=== PATIENT | female | born 1980 | race American Indian/Alaskan Native ===

== ENCOUNTER 2017-01-11 16:06 | Emergency (ER) | payer SELFPAY ==
[2017-01-11 21:07] LABS: Bilirubin,Urine NEG (Negative); Blood,Urine NEG (Negative); Ketones,Urine TR mg/dL (Negative); Leukocyte Esterase,Urine NEG (Negative); Mucus,Urine 1+ /HPF; Nitrite,Urine NEG (Negative); Urobilinogen,Urine < 2.0 mg/dL (<2.0)
[2017-01-11] MEDS ORDERED: TORADOL IM ONE (21:29)
[2017-01-11] MEDS ORDERED: NORCO 5/325 PO ONE (21:29)
[2017-01-11] MEDS ORDERED: ZOFRAN ODT PO ONE (21:29)
--- NOTE | 2017-01-11 22:06 | Emergency Department Report ---
ED Back Pain/Injury HPI - General Chief Complaint: Back Pain/Injury Stated Complaint: SEVERE BACK PAIN Time Seen by Provider: 01/11/17 20:51 Source: patient Limitations: No Limitations - History of Present Illness Initial Comments: 36-year-old female past medical history morbid obesity, chronic back pain presents with complaint of acute on chronic back pain. Patient states the back pain radiates from lower back down left. Patient denies any direct trauma, patient denies any rash, patient denies any dysuria or increased urinary frequency. States she has had intermittent lower back pain radiating to left buttock approximately one year. Patient is calm sitting on bed states that when she walks around she feels intermittent sharp lower back pain. Pt denies any saddle paresthesias or any bladder or bowel incontinence. Patient is ambulatory during my exam MD Complaint: back pain Onset/Timin -: year(s) Place: home Radiation: buttocks (left buttock) Severity: moderate Severity scale (0 -10): 7 Quality: sharp, aching Consistency: intermittent Improves With: none Worsens With: none Associated Symptoms: denies other symptoms - Related Data Home Medications Medication Instructions Recorded Confirmed Last Taken Ferrous Sulfate [Feosol] 325 mg PO BID 01/24/16 01/11/17 02/01/16 Previous Rx's Medication Instructions Recorded Last Taken Type oxyCODONE /ACETAMINOPHEN [Percocet 1 tab PO Q6HR PRN #30 tablet 02/08/16 Unknown Rx 5/325] Ibuprofen [Motrin 600 MG tab] 600 mg PO Q8H PRN #30 tablet 02/09/16 Unknown Rx Cyclobenzaprine [Flexeril] 10 mg PO TID PRN #12 tablet 01/11/17 Unknown Rx Naproxen [Naprosyn TAB] 500 mg PO BID PRN #25 tablet 01/11/17 Unknown Rx Allergies Allergy/AdvReac Type Severity Reaction Status Date / Time No Known Allergies Allergy Verified 02/07/16 11:28 ED Review of Systems ROS: Stated complaint: SEVERE BACK PAIN Other details as noted in HPI Constitutional: denies: chills, fever Eyes: denies: eye pain, eye discharge, vision change ENT: denies: ear pain, throat pain Respiratory: denies: cough, shortness of breath, wheezing Cardiovascular: denies: chest pain, palpitations Endocrine: no symptoms reported Gastrointestinal: denies: abdominal pain, nausea, diarrhea Genitourinary: denies: urgency, dysuria, discharge Musculoskeletal: denies: back pain, joint swelling, arthralgia Skin: denies: rash, lesions Neurological: denies: headache, weakness, paresthesias Psychiatric: denies: anxiety, depression Hematological/Lymphatic: denies: easy bleeding, easy bruising ED Past Medical Hx - Past Medical History Hx Hypertension: No Hx Diabetes: No Hx Headaches / Migraines: Yes (migraines) Hx Asthma: No Hx COPD: No Hx HIV: No Additional medical history: fibroids - Surgical History Additional Surgical History: myomectomy - Social History Smoking Status: Never Smoker Substance Use Type: None - Medications Home Medications: Home Medications Medication Instructions Recorded Confirmed Last Taken Type Ferrous Sulfate [Feosol] 325 mg PO BID 01/24/16 01/11/17 02/01/16 History oxyCODONE /ACETAMINOPHEN [Percocet 1 tab PO Q6HR PRN #30 tablet 02/08/16 Unknown Rx 5/325] Ibuprofen [Motrin 600 MG tab] 600 mg PO Q8H PRN #30 tablet 02/09/16 01/11/17 Unknown Rx Cyclobenzaprine [Flexeril] 10 mg PO TID PRN #12 tablet 01/11/17 Unknown Rx Naproxen [Naprosyn TAB] 500 mg PO BID PRN #25 tablet 01/11/17 Unknown Rx ED Physical Exam - General Limitations: No Limitations General appearance: alert, in no apparent distress - Head Head exam: Present: atraumatic, normocephalic - Eye Eye exam: Present: normal appearance, PERRL, EOMI - ENT ENT exam: Present: mucous membranes moist - Neck Neck exam: Present: normal inspection - Respiratory Respiratory exam: Present: normal lung sounds bilaterally. Absent: respiratory distress - Cardiovascular Cardiovascular Exam: Present: regular rate, normal rhythm. Absent: systolic murmur, diastolic murmur, rubs, gallop - GI/Abdominal GI/Abdominal exam: Present: soft, normal bowel sounds - Rectal Rectal exam: Present: normal rectal tone - Extremities Exam Extremities exam: Present: normal inspection - Back Exam Back exam: Present: normal inspection - Neurological Exam Neurological exam: Present: alert, oriented X3, CN II-XII intact, normal gait - Psychiatric Psychiatric exam: Present: normal affect, normal mood - Skin Skin exam: Present: warm, dry, intact, normal color. Absent: rash ED Course Vital Signs 01/11/17 01/11/17 18:54 22:17 Temperature 97.8 F Pulse Rate 87 95 H Respiratory 18 18 Rate Blood Pressure 134/76 Blood Pressure 134/81 [Left] O2 Sat by Pulse 100 100 Oximetry ED Medical Decision Making - Medical Decision Making A/P: Chronic lower back pain, sciatica left side 1- patient has no signs of cord compression clinically no saddle paresthesias good rectal tone and reports no loss of bladder or bowel control and is ambulatory, deep tendon reflexes intact bilaterally in lower extremities knee jerk reflex intact and strength is 5 out of 5 both lower extremities. No clinical indication for emergent neuroimaging at this time 2- naproxen and Flexeril when necessary 3- I provided patient with information for follow-up with spine surgery orthopedics and primary care 4- as patient is morbidly obese I advised her to try weight loss to put less daily axial pressure on her spine. I gave patient literature on sciatica and lumbar radiculopathy for her to understand the symptoms and etiology Critical care attestation.: If time is entered above; I have spent that time in minutes in the direct care of this critically ill patient, excluding procedure time. ED Disposition Clinical Impression: Sciatic leg pain Lower back pain Qualifiers: Chronicity: acute Back pain laterality: left Sciatica presence: with sciatica Sciatica laterality: sciatica of left side Qualified Code(s): M54.42 - Lumbago with sciatica, left side Disposition: TO HOME OR SELFCARE Is pt being admited?: No Does the pt Need Aspirin: No Condition: Stable Instructions: Sciatica (ED), Lumbar Radiculopathy (ED) Prescriptions: Cyclobenzaprine [Flexeril] 10 mg PO TID PRN #12 tablet PRN Reason: Muscle Spasm Naproxen [Naprosyn TAB] 500 mg PO BID PRN #25 tablet PRN Reason: Pain Referrals: JERICA PARRA MD [Staff Physician] - 3-5 Days AZ COLE MD [Staff Physician] - 3-5 Days [facility] [Provider Group] - 3-5 Days [facility] [Outside] - 3-5 Days Forms: Work/School Release Form(ED) Time of Disposition: 22:04
[2017-01-11 22:18] VITALS: BP 134/81
== END 2017-01-11 22:18 | disposition home or self-care (01) ==
LOC: ED 16:06
DX: M54.42 Lumbago with sciatica, left side (principal); M79.605 Pain in left leg; G43.909 Migraine, unspecified, not intractable, without status migrainosus
CPT/HCPCS: 81001; 81025; 96372; 99283; J1885; Q0162

== ENCOUNTER 2017-01-17 10:10 | Inpatient (IN) | payer SELFPAY ==
[2017-01-17 11:13] LABS: Basophils % (Auto) 0.6 % (0.0-1.8); Eosinophils % (Auto) 2.4 % (0.0-4.3); Mean Corpuscular HGB Conc 27 % (30-34); Platelet Count 331 K/mm3 (140-440); Red Blood Count 3.53 M/mm3 (3.65-5.03)
[2017-01-17 11:15] LABS: Anion Gap 16 mmol/L; Blood Urea Nitrogen 9 mg/dL (7-17); Calcium 8.7 mg/dL (8.4-10.2); Carbon Dioxide 26 mmol/L (22-30); Chloride 102.7 mmol/L (98-107); Glucose 89 mg/dL (65-100); Potassium 3.2 mmol/L (3.6-5.0); Sodium 141 mmol/L (137-145)
[2017-01-17 11:19] LABS: Hematocrit 20.9 % (30.3-42.9); Hemoglobin 5.7 gm/dl (10.1-14.3); Mean Corpuscular Hemoglobin 16 pg (28-32); Mean Corpuscular Volume 59 fl (79-97); Red Cell Distribution Width 20.1 % (13.2-15.2)
[2017-01-17 11:21] LABS: INR 0.97 (0.87-1.13)
[2017-01-17] MEDS ORDERED: NACL 0.9% 500 ML 500 ML IV ONE (14:45)
[2017-01-17] MEDS ORDERED: K-DUR PO ONE (14:49)
--- NOTE | 2017-01-17 14:51 | Emergency Department Report ---
ED Female HPI - General Chief complaint: Recheck/Abnormal Lab/Rx Stated complaint: LOW BLOOD COUNT Time Seen by Provider: 01/17/17 14:49 Source: patient Mode of arrival: Ambulatory Limitations: No Limitations - History of Present Illness Initial comments: 36 year old female with past medical history of obesity, uterine fibroids, anemia, and migraines presents to the hospital with complaints of anemia and menorrhagia. Patient was sent by Dr. Elias RV REPAIRER doctor [facility] because her hemoglobin was 6. Patient complains of generalized weakness and fatigue with dyspnea on exertion. Patient having intermittent crampy suprapubic abdominal pain that is mild. Patient restarted her menstrual cycle on the . She is using multiple overnight pads (2 at a time) and has heavy vaginal bleeding. Patient had a myomectomy performed by Dr. Sabas Zamora January 2016. Patient states this seemed to help for 2 months but then patient continued to have heavy menstrual cycles. She has never required a blood transfusion in the past. Patient states her last ultrasound was in the outpatient clinic in October and she was told they she has fibroids plus a mass that needs to be biopsied. Patient is not currently taking iron tablets - Related Data Home Medications Medication Instructions Recorded Confirmed Last Taken Ferrous Sulfate [Feosol] 325 mg PO BID 01/24/16 01/11/17 02/01/16 Previous Rx's Medication Instructions Recorded Last Taken Type oxyCODONE /ACETAMINOPHEN [Percocet 1 tab PO Q6HR PRN #30 tablet 02/08/16 Unknown Rx 5/325] Ibuprofen [Motrin 600 MG tab] 600 mg PO Q8H PRN #30 tablet 02/09/16 Unknown Rx Cyclobenzaprine [Flexeril] 10 mg PO TID PRN #12 tablet 01/11/17 Unknown Rx Naproxen [Naprosyn TAB] 500 mg PO BID PRN #25 tablet 01/11/17 Unknown Rx Allergies Allergy/AdvReac Type Severity Reaction Status Date / Time No Known Allergies Allergy Verified 01/17/17 10:29 ED Review of Systems ROS: Stated complaint: LOW BLOOD COUNT Other details as noted in HPI Comment: All other systems reviewed and negative Other: Constitutional: No fevers chills Eyes: No eye pain visual changes ENT: No ear pain or throat pain Neck: Denies pain Respiratory: Denies cough wheezing Cardiovascular: Denies chest pain, palpitations, syncope GI: Denies abdominal pain, nausea, vomiting, diarrhea : Denies dysuria Musculoskeletal: Denies back pain Skin: Denies rash, lesions, erythema Neurologic: Denies headache, numbness Psychiatric: Denies suicidal ideation, hallucinations ED Past Medical Hx - Past Medical History Hx Hypertension: No Hx Diabetes: No Hx Headaches / Migraines: Yes (migraines) Hx Asthma: No Hx COPD: No Hx HIV: No Additional medical history: fibroids ANEMIA - Surgical History Additional Surgical History: myomectomy - Social History Smoking Status: Never Smoker Substance Use Type: None - Medications Home Medications: Home Medications Medication Instructions Recorded Confirmed Last Taken Type Ferrous Sulfate [Feosol] 325 mg PO BID 01/24/16 01/11/17 02/01/16 History oxyCODONE /ACETAMINOPHEN [Percocet 1 tab PO Q6HR PRN #30 tablet 02/08/16 Unknown Rx 5/325] Ibuprofen [Motrin 600 MG tab] 600 mg PO Q8H PRN #30 tablet 02/09/16 01/11/17 Unknown Rx Cyclobenzaprine [Flexeril] 10 mg PO TID PRN #12 tablet 01/11/17 Unknown Rx Naproxen [Naprosyn TAB] 500 mg PO BID PRN #25 tablet 01/11/17 Unknown Rx ED Physical Exam - General Limitations: No Limitations - Other Other exam information: General: No limitations, patient is alert in no acute distress Head exam: Atraumatic, normocephalic Eyes exam: Normal appearance, pupils equal reactive to light ENT: Moist mucous membrane, normal oropharynx Neck exam: Normal inspection, full range of motion, no meningismus nontender Respiratory exam: Clear to auscultation bilateral, no wheezes, rales, crackles Cardiovascular: Normal rate and rhythm, normal heart sounds Abdomen: Soft, nondistended, and nontender, with normal bowel sounds, no rebound, or guarding Extremity: Full range of motion normal inspection no deformity Back: Normal Inspection, full range of motion, no tenderness Neurologic: Alert, oriented x3, cranial nerves intact, no motor or sensory deficit Psychiatric: normal affect, normal mood Skin: Warm, dry, intact ED Course Vital Signs 01/17/17 10:30 Temperature 98.3 F Pulse Rate 76 Respiratory 18 Rate Blood Pressure 138/79 O2 Sat by Pulse 97 Oximetry ED Medical Decision Making - Lab Data Result diagrams: 01/17/17 10:37 01/17/17 10:37 Lab Results 01/17/17 01/17/17 01/17/17 Range/Units 10:37 10:37 10:37 WBC 4.0 L (4.5-11.0) K/mm3 RBC 3.53 L (3.65-5.03) M/mm3 Hgb 5.7 L* (10.1-14.3) gm/dl Hct 20.9 L (30.3-42.9) % MCV 59 L (79-97) fl MCH 16 L (28-32) pg MCHC 27 L (30-34) % RDW 20.1 H (13.2-15.2) % Plt Count 331 (140-440) K/mm3 Lymph % (Auto) 42.9 H (13.4-35.0) % [place] % (Auto) 7.7 H (0.0-7.3) % Eos % (Auto) 2.4 (0.0-4.3) % Baso % (Auto) 0.6 (0.0-1.8) % Lymph # 1.7 (1.2-5.4) K/mm3 [place] # 0.3 (0.0-0.8) K/mm3 Eos # 0.1 (0.0-0.4) K/mm3 Baso # 0.0 (0.0-0.1) K/mm3 Seg Neutrophils % 46.4 (40.0-70.0) % Seg Neutrophils # 1.8 (1.8-7.7) K/mm3 PT 13.4 (12.2-14.9) Sec. INR 0.97 (0.87-1.13) Sodium (137-145) mmol/L Potassium (3.6-5.0) mmol/L Chloride (98-107) mmol/L Carbon Dioxide (22-30) mmol/L Anion Gap mmol/L BUN (7-17) mg/dL Creatinine (0.7-1.2) mg/dL Estimated GFR ml/min BUN/Creatinine Ratio % Glucose (65-100) mg/dL Calcium (8.4-10.2) mg/dL Blood Type A POSITIVE Antibody Screen TNR JIAN Antibody Screen Negative Crossmatch See Detail 07/20/17 Range/Units 10:37 WBC (4.5-11.0) K/mm3 RBC (3.65-5.03) M/mm3 Hgb (10.1-14.3) gm/dl Hct (30.3-42.9) % MCV (79-97) fl MCH (28-32) pg MCHC (30-34) % RDW (13.2-15.2) % Plt Count (140-440) K/mm3 Lymph % (Auto) (13.4-35.0) % [place] % (Auto) (0.0-7.3) % Eos % (Auto) (0.0-4.3) % Baso % (Auto) (0.0-1.8) % Lymph # (1.2-5.4) K/mm3 [place] # (0.0-0.8) K/mm3 Eos # (0.0-0.4) K/mm3 Baso # (0.0-0.1) K/mm3 Seg Neutrophils % (40.0-70.0) % Seg Neutrophils # (1.8-7.7) K/mm3 PT (12.2-14.9) Sec. INR (0.87-1.13) Sodium 141 (137-145) mmol/L Potassium 3.2 L (3.6-5.0) mmol/L Chloride 102.7 (98-107) mmol/L Carbon Dioxide 26 (22-30) mmol/L Anion Gap 16 mmol/L BUN 9 (7-17) mg/dL Creatinine 0.5 L (0.7-1.2) mg/dL Estimated GFR > 60 ml/min BUN/Creatinine Ratio 18.00 % Glucose 89 (65-100) mg/dL Calcium 8.7 (8.4-10.2) mg/dL Blood Type Antibody Screen JIAN Antibody Screen Crossmatch - Medical Decision Making Ultrasound ordered and pending at disposition. Case discussed with RV REPAIRER who agrees to admit for transfusion and further workup. 2 units of PRBCs ordered and 40mg of by mouth potassium given in the ED - Differential Diagnosis uterine fibroids, menorrhagia, Critical Care Time: No Critical care attestation.: If time is entered above; I have spent that time in minutes in the direct care of this critically ill patient, excluding procedure time. ED Disposition Clinical Impression: Symptomatic anemia, Menorrhagia, Fibroids, Hypokalemia Disposition: OP ADMIT IP TO THIS HOSP Is pt being admited?: Yes Condition: Stable Time of Disposition: 14:51 (Dr Justo Zamora/cheerleading coach)
--- NOTE | 2017-01-17 15:06 | Short Stay Summary ---
<SABAS ZAMORA - Last Filed: 01/17/17 15:10> Short Stay Documentation Date of service: 01/17/17 Narrative H&P: Pt is a 36 year old black female with past medical history of obesity, uterine fibroids, anemia, and migraines presents to the hospital with complaints of anemia and menorrhagia. She was sent by Dr. Elias REGISTERED PHLEBOTOMIST PART TIME doctor [facility] because her hemoglobin was 6. Patient complains of generalized weakness and fatigue with dyspnea on exertion. Patient having intermittent crampy suprapubic abdominal pain that is mild. Patient restarted her menstrual cycle on the . She is using multiple overnight pads (2 at a time) and has heavy vaginal bleeding. Patient had a myomectomy performed by Dr. Sabas Zamora January 2016. Patient states this seemed to help for 2 months but then patient continued to have heavy menstrual cycles. She has never required a blood transfusion in the past. Patient states her last ultrasound was in the outpatient clinic in October and she was told they she has fibroids plus a mass that needs to be biopsied. Patient is not currently taking iron tablets. Her H/ H is currently 5.7/20.9, and she will therefore be admitted for a blood transfusion. - History Principal diagnosis: symptomatic anemia H&P: obtained from office Past Medical History: other (obesity) Past Surgical History: Other (abdominal myomectomy) Social history: no significant social history, single - Allergies and Medications Current Medications: Allergies No Known Allergies Allergy (Verified 01/17/17 10:29) Home Medications Medication Instructions Recorded Confirmed Last Taken Type Ferrous Sulfate [Feosol] 325 mg PO BID 01/24/16 01/11/17 02/01/16 History oxyCODONE /ACETAMINOPHEN [Percocet 1 tab PO Q6HR PRN #30 tablet 02/08/16 Unknown Rx 5/325] Ibuprofen [Motrin 600 MG tab] 600 mg PO Q8H PRN #30 tablet 02/09/16 01/11/17 Unknown Rx Cyclobenzaprine [Flexeril] 10 mg PO TID PRN #12 tablet 01/11/17 Unknown Rx Naproxen [Naprosyn TAB] 500 mg PO BID PRN #25 tablet 01/11/17 Unknown Rx - Physical exam General appearance: no acute distress Integumentary: no rash HEENT: Atraumatic Lungs: Clear to auscultation Breasts: deferred Heart: Regular rate Gastrointestinal: normal Female Genitourinary: deferred Extremities: no ischemia Neurological: Normal gait - Disposition Condition at discharge: Stable Disposition: DC-30 STILL A PATIENT Short Stay Discharge Plan Additional Instructions: [] Smoking cessation referral if applicable(refer to patient education folder for contact #) [] Refer to [facility] Book[facility] Call your doctor immediately for: * Fever > 100.5 * Heavy vaginal bleeding ( >1 pad per hour) * Severe persistent headache * Shortness of breath * Reddened, hot, painful area to leg or breast Call your jira administrator for follow up appointment. Follow up with: PRIMARY CARE, [Primary Care Provider] - 7 Days Forms: [facility] Discharge Summary Prescriptions: Multivitamin with Iron [Multivitamins with Iron] 1 each PO DAILY #30 tablet <DUC MONTOYA - Last Filed: 01/18/17 15:32> Short Stay Documentation - Allergies and Medications Current Medications: Allergies No Known Allergies Allergy (Verified 01/17/17 10:29) Home Medications Medication Instructions Recorded Confirmed Last Taken Type Cyclobenzaprine [Flexeril] 10 mg PO TID PRN #12 tablet 01/11/17 01/17/17 Rx Naproxen [Naprosyn TAB] 500 mg PO BID PRN #25 tablet 01/11/17 01/17/17 01/16/17 Rx Acetaminophen with Codeine 1 each PO Q6HR PRN 01/17/17 01/17/17 01/17/17 History [Acetaminophen-Codeine #2 TAB] Multivitamin with Iron 1 each PO DAILY #30 tablet 01/18/17 Unknown Rx [Multivitamins with Iron] Active Medications Acetaminophen (Tylenol) 650 mg PO Q4H PRN PRN Reason: Pain MILD(1-3)/Fever >100.5/[place] Docusate Sodium (Colace) 100 mg PO Q12H PRN PRN Reason: Constipation Lactated Ringer's (Lactated Ringers) 1,000 mls @ 125 mls/hr IV DIRECT MOO Last Admin: 01/17/17 19:47 Dose: 125 mls/hr Potassium Chloride (Kcl 10meq/100ml) 10 meq in 100 mls @ 100 mls/hr IV Q1H PRN PRN Reason: Potassium 3-3.5 mEq/L Last Admin: 01/18/17 06:47 Dose: 100 mls/hr Magnesium Hydroxide (Milk Of Magnesia) 30 ml PO QHS PRN PRN Reason: Laxative Effect Multivitamins/Iron/Calcium ( Vitamin) 1 each PO QDAY MOO Last Admin: 01/18/17 10:01 Dose: 1 each - Hospital course Hospital course: She was admitted to the floor. Patient received 3 units of packed red blood cells with rebound of her H&H. She is discharged in stable condition - Discharge Diagnoses (1) Symptomatic anemia Status: Acute (2) Fibroids Status: Acute Qualifiers: Uterine leiomyoma location: U Short Stay Discharge Plan Activity: advance as tolerated Weight Bearing Status: Weight Bear as Tolerated Diet: regular
[2017-01-17] MEDS ORDERED: MILK OF MAGNESIA PO PRN (15:12)
[2017-01-17] MEDS ORDERED: TYLENOL PO PRN (15:12)
[2017-01-17] MEDS ORDERED: COLACE PO PRN (15:12)
--- NOTE | 2017-01-17 15:29 | Admit Criteria Form ---
Admission Criteria Documentation: ANEMIA, IRON DEFICIENCY OR UNSPECIFIED Clinical Indications for Inpatient Care (Place 'X' for any and all applicable criteria): Admission is indicated for ANY ONE of the following(1)(2)(3)(4)(5)(6)(7): [X] I. Inpatient admission required rather than observation care (Also use Anemia, Iron Deficiency or Unspecified: Observation Care guideline as appropriate) because of ANY ONE of the following: [] a) Hemodynamic instability that is severe or persistent [] b) Active bleeding that cannot be rapidly controlled [] c) CVS symptoms (i.e., dyspnea, chest pain, heart failure) that are severe or persistent [] d) Neurologic symptoms (i.e., cognitive impairment, recurrent syncope or near syncope) that are severe or persistent [] e) Cardiac arrhythmias of immediate concern [] f) Acute peripheral ischemia (e.g., pulseless, cool, mottled, or cyanotic extremity) [] g) High-risk low platelet count [] h) Acute renal failure [] i) Ongoing transfusion for blood loss (greater than 2 units) [] j) IV fluid to replace significant ongoing (eg, >24 hours) losses (> 3 L/m2 per day) [] k) Pulmonary artery catheter monitoring [] l) Supplemental oxygen or respiratory treatments for over 24 hours that are performable only in acute inpatient setting [] m) Immediate inpatient surgery [X] n) Other condition, treatment or monitoring requiring inpatient admission [] II Active massive hemorrhage [] III. Active hemolysis with rapidly progressive anemia [A](6) Extended stay beyond goal length of stay may be needed for (17)(18) []a) Diagnosed cause of anemia requiring longer hospitalization (eg, active GI bleeding, immune hemolysis requiring electrophoresis, complications of malignancy requiring acute care []b) Continued emergent anemia indicators (23) []c) Transfusion reactions []d) Associated leukopenia or thrombocytopenia needing inpatient care []e) Active comorbidities (eg, renal failure, heart failure) The original [facility] Care Guidelines content created by [facility] Care Guidelines has been revised. The portions of the content which have been revised are identified through the use of italic text or in bold. [facility] Guidelines has neither reviewed nor approved the modified material. All other unmodified content is copyright [facility] Care Guidelines. Please see references footnoted in the original [facility] edition 2016 Admission Criteria Met: Yes
[2017-01-17] MEDS ORDERED: LACTATED RINGERS 1,000 ML IV SCH (16:00)
[2017-01-17] MEDS ORDERED: TYLENOL PO ONE ×2 (17:00→20:00)
[2017-01-17] MEDS ORDERED: BENADRYL IV ONE ×2 (17:00→20:00)
[2017-01-18] MEDS: KCL 10MEQ/100ML 10 MEQ/100 ML BAG IV PRN ×4 (02:54→06:47)
[2017-01-18 07:32] LABS: Hematocrit 23.5 % (30.3-42.9)
--- NOTE | 2017-01-18 09:29 | Progress Note ---
Assessment and Plan A: AUB/HMB-L Symptomatic Anemia P: -Transfuse 1 unit packed red blood cells -Discharged home after completion of unit -Follow up in clinic in 1-2 weeks - Patient Problems (1) Symptomatic anemia Current Visit: Yes Status: Acute (2) Fibroids Current Visit: Yes Status: Acute Qualifiers: Uterine leiomyoma location: U Subjective - Subjective Date of service: 01/18/17 Principal diagnosis: symptomatic anemia Interval history: Patient seen and examined, stable with no complaints. No chest pain shortness of breath or vaginal bleeding, not yet ambulated Has completed 2 units packed red blood cells with H&H ~ 01/21 this morning Patient reports: appetite normal, voiding normally, ambulating normally, no nauseated Objective - Vital Signs Latest vital signs: Vital Signs Temp Pulse Pulse Resp BP BP BP 01/18/17 08:05 97.5 F L 65 17 133/75 01/18/17 04:00 98.2 F 70 18 147/76 01/18/17 02:45 98.0 F 68 16 140/85 01/18/17 02:15 98.3 F 69 16 133/79 01/18/17 01:45 98.2 F 71 16 141/81 01/18/17 01:15 97.9 F 71 18 123/81 01/18/17 00:45 98.0 F 80 16 90/56 01/18/17 00:15 98.3 F 74 18 80/52 01/18/17 00:00 98.2 F 70 72 18 78/55 125/68 01/17/17 23:31 98.3 F 78 16 72/50 01/17/17 23:03 98.2 F 72 16 78/51 01/17/17 22:33 98.3 F 72 18 71/41 01/17/17 22:03 98.9 F 76 16 91/47 01/17/17 21:33 98.5 F 68 18 78/55 01/17/17 21:03 98.2 F 75 16 92/51 01/17/17 20:48 98.2 F 71 16 110/55 01/17/17 20:00 98.2 F 78 18 140/72 01/17/17 17:50 97.5 F L 62 18 113/59 01/17/17 16:02 98.0 F 80 16 135/74 Pulse Ox 01/18/17 08:05 01/18/17 04:00 01/18/17 02:45 01/18/17 02:15 01/18/17 01:45 01/18/17 01:15 01/18/17 00:45 01/18/17 00:15 01/18/17 00:00 01/17/17 23:31 01/17/17 23:03 01/17/17 22:33 01/17/17 22:03 01/17/17 21:33 01/17/17 21:03 01/17/17 20:48 01/17/17 20:00 01/17/17 17:50 01/17/17 16:02 100 Intake and Output 01/17/17 01/18/17 01/18/17 22:59 06:59 14:59 Intake Total 0 1040 Output Total 400 Balance 0 640 Intake: IV 300 KCL 10MEQ/100ML 10 meq In 300 100 ml @ 100 mls/hr IV Q1H PRN Rx#:[id number] Oral 240 Blood Product 0 500 Leukoreduced Red Blood 250 Cells Unit [id number] Leukoreduced Red Blood 0 250 Cells Unit [id number] Output: Urine 400 Void 400 Other: Total, Intake Amount 240 Total, Output Amount 400 Voiding Method Toilet Toilet # Voids Void 1 - Exam Cardiovascular: Present: Regular rate, Normal S1, Normal S2 Abdomen: Present: normal appearance, soft. Absent: tenderness - Labs Labs: Abnormal lab results 01/18/17 Range/Units 07:03 Hgb 7.0 L (10.1-14.3) gm/dl Hct 23.5 L (30.3-42.9) %
[2017-01-18] MEDS ORDERED: NACL 0.9% 500 ML 500 ML IV ONE ×2 (09:30→13:00)
--- NOTE | 2017-01-18 09:39 | Ultrasound Report ---
Pelvic ultrasound: Menorrhagia; fibroid history with myomectomy 2016. Endovaginal and transabdominal imaging demonstrates an anteverted uterus measuring 7.3 7.8 x 12 cm. 2 focal hypodensities are present in the uterine fundus measuring 9 and 19 mm respectively. Both are peripheral in location. The endometrial thickness is 14 mm and homogeneous. Both ovaries have a maximum dimension of 3.1 cm and both ovaries are echogenically unremarkable. Minimal free fluid. Impression: Small uterine fibroids. Borderline thick endometrium with irregular cycle history.
[2017-01-18] MEDS ORDERED: PRENATAL VITAMIN PO SCH (10:00)
[2017-01-18 18:13] VITALS: BP 145/65
== END 2017-01-18 16:45 | disposition home or self-care (01) | DRG 812 ==
LOC: ED 10:10 → OB 15:12
PROVIDERS: ADMIT Obstetrics & Gynecology; ATTEND Obstetrics & Gynecology
PROC: 30233N1 Transfusion of Nonautologous Red Blood Cells into Peripheral Vein, Percutaneous Approach (ICD-10-PCS; principal; 2017-01-18)
DX: D64.9 Anemia, unspecified (principal); Z68.44 Body mass index [BMI] 60.0-69.9, adult; N92.0 Excessive and frequent menstruation with regular cycle; E87.6 Hypokalemia; E66.9 Obesity, unspecified; G43.909 Migraine, unspecified, not intractable, without status migrainosus; D21.9 Benign neoplasm of connective and other soft tissue, unspecified; Z90.89 Acquired absence of other organs
CPT/HCPCS: 36415; 76830; 76856; 80048; 84132; 84702; 85014; 85018; 85025; 85610; 86850; 86900; 86901; 86920; 99285; J1200; J3480; J7040; J7120; P9016

== ENCOUNTER 2017-09-12 12:01 | Inpatient (IN) | payer SELFPAY ==
--- NOTE | 2017-09-12 15:12 | Emergency Department Report ---
- General Stated complaint: anemia Time Seen by Provider: 09/12/17 14:10 Source: patient Mode of arrival: Ambulatory Limitations: No Limitations - History of Present Illness Initial comments: patient is a 37-year-old who has presented to the emergency room for recheck of her H&H due to anemia found at her AGRICULTURAL ADVISER's office. Patient states that she is having weakness, chest pain, shortness of breath and dyspnea on exertion. Patient states she has a long history of anemia but lately due to her heavy cycle her anemia has been worse. Patient states that her chest pain is a 3 out of 10. Patient states that it is worse with exertion and better with rest. Patient states her shortness of breath is better with rest and worse with exertion. Patient denies fever and chills. She denies diaphoresis. -: Sudden Location: generalized Severity: severe Consistency: intermittent Improves with: rest Worsens with: movement Associated Symptoms: chest pain, shortness of breath - Related Data Home Medications Medication Instructions Recorded Confirmed Last Taken Ibuprofen [Motrin 800 MG tab] 800 mg PO QAC 09/12/17 09/12/17 Unknown Pnv No.95/Ferrous Fum/Folic AC 1 each PO DAILY 09/12/17 09/12/17 Unknown [ Vitamin Tablet] metroNIDAZOLE [Flagyl TAB] 500 mg PO BID 09/12/17 09/12/17 09/10/17 Allergies Allergy/AdvReac Type Severity Reaction Status Date / Time No Known Allergies Allergy Verified 01/17/17 10:29 ED Review of Systems ROS: Stated complaint: Other details as noted in HPI Comment: All other systems reviewed and negative Constitutional: weakness. denies: chills, fever Eyes: denies: eye pain, eye discharge, vision change ENT: denies: ear pain, throat pain Respiratory: shortness of breath, SOB with exertion, SOB at rest. denies: cough , wheezing Cardiovascular: chest pain. denies: palpitations Endocrine: no symptoms reported Gastrointestinal: denies: abdominal pain, nausea, diarrhea Genitourinary: denies: urgency, dysuria, discharge Musculoskeletal: denies: back pain, joint swelling, arthralgia Skin: denies: rash, lesions Neurological: weakness. denies: headache, paresthesias Psychiatric: denies: anxiety, depression Hematological/Lymphatic: denies: easy bleeding, easy bruising ED Past Medical Hx - Past Medical History Previous Medical History?: Yes Hx Hypertension: No Hx Diabetes: No Hx Headaches / Migraines: Yes (migraines) Hx Asthma: No Hx COPD: No Hx HIV: No Additional medical history: fibroids ANEMIA - Surgical History Past Surgical History?: Yes Additional Surgical History: myomectomy - Family History Family history: hypertension - Social History Smoking Status: Never Smoker - Medications Home Medications: Home Medications Medication Instructions Recorded Confirmed Last Taken Type Ibuprofen [Motrin 800 MG tab] 800 mg PO QAC 09/12/17 09/12/17 Unknown History Pnv No.95/Ferrous Fum/Folic AC 1 each PO DAILY 09/12/17 09/12/17 Unknown History [ Vitamin Tablet] metroNIDAZOLE [Flagyl TAB] 500 mg PO BID 09/12/17 09/12/17 09/10/17 History ED Physical Exam - General Limitations: No Limitations General appearance: alert, in no apparent distress - Head Head exam: Present: atraumatic, normocephalic - Eye Eye exam: Present: normal appearance, other (scleral pallor) - ENT ENT exam: Present: mucous membranes moist - Neck Neck exam: Present: normal inspection - Respiratory Respiratory exam: Present: normal lung sounds bilaterally. Absent: respiratory distress - Cardiovascular Cardiovascular Exam: Present: regular rate, normal rhythm. Absent: systolic murmur, diastolic murmur, rubs, gallop - GI/Abdominal GI/Abdominal exam: Present: soft, normal bowel sounds - Extremities Exam Extremities exam: Present: normal inspection - Back Exam Back exam: Present: normal inspection - Neurological Exam Neurological exam: Present: alert, oriented X3 - Psychiatric Psychiatric exam: Present: normal affect, normal mood - Skin Skin exam: Present: warm, dry, intact, normal color. Absent: rash ED Course Vital Signs 09/12/17 09/12/17 16:57 17:01 Temperature 98.2 F 98.2 F Pulse Rate 78 78 Respiratory 20 20 Rate Blood Pressure 126/65 Blood Pressure 126/65 [Left] O2 Sat by Pulse 100 98 Oximetry - Reevaluation(s) Reevaluation #1: Discussed case with Dr. Zamora of AGRICULT[employer] ADVIS[employer]. Dr. Zamora agreed to admit patient for transfusions 09/12/17 18:34 ED Medical Decision Making - Lab Data Result diagrams: 09/12/17 12:00 09/12/17 12:00 - Radiology Data Radiology results: image reviewed interpreted by me: No acute findings on chest x-ray - Medical Decision Making We'll admit patient for packed red blood cells. All results discussed with patient. Dr. Zamora, AGRICULTURAL ADVISER consult for admission. He agreed to admit - Differential Diagnosis dysfunctional uterine bleeding. severe Anemia Critical care attestation.: If time is entered above; I have spent that time in minutes in the direct care of this critically ill patient, excluding procedure time. ED Disposition Clinical Impression: Severe anemia, Chest pain, Shortness of breath, Dyspnea on exertion Disposition: DC-09 OP ADMIT IP TO THIS HOSP Is pt being admited?: Yes Does the pt Need Aspirin: No Condition: Serious Time of Disposition: 18:56
[2017-09-12 16:51] LABS: Alanine Aminotransferase 11 units/L (7-56); BUN/Creatinine Ratio 14; Blood Urea Nitrogen 7 mg/dL (7-17); Hemolysis Index 0
[2017-09-12 17:14] LABS: Basophils % (Auto) 1.2 % (0.0-1.8); Eosinophils # (Auto) 0.1 K/mm3 (0.0-0.4); Eosinophils % (Auto) 1.6 % (0.0-4.3); Hemoglobin 6.7 gm/dl (10.1-14.3); Lymphocytes # (Auto) 1.4 K/mm3 (1.2-5.4); Lymphocytes % (Auto) 36.7 % (13.4-35.0); Mean Corpuscular HGB Conc 28 % (30-34); Monocytes # (Auto) 0.4 K/mm3 (0.0-0.8); Monocytes % (Auto) 9.5 % (0.0-7.3); Platelet Count 335 K/mm3 (140-440); Red Blood Count 3.65 M/mm3 (3.65-5.03); Red Cell Distribution Width 19.1 % (13.2-15.2)
[2017-09-12 17:15] LABS: Hematocrit 23.6 % (30.3-42.9); Mean Corpuscular Hemoglobin 18 pg (28-32); Mean Corpuscular Volume 65 fl (79-97)
[2017-09-12] MEDS ORDERED: NACL 0.9% 500 ML 500 ML IV ONE (18:35)
[2017-09-12] MEDS ORDERED: TYLENOL PO PRN (18:51)
[2017-09-12] MEDS ORDERED: COLACE PO PRN (18:51)
[2017-09-12] MEDS ORDERED: AMBIEN PO PRN (18:51)
[2017-09-12] MEDS ORDERED: NACL 0.9% 500 ML 500 ML IV SCH (18:51)
--- NOTE | 2017-09-12 19:06 | XRay Report ---
FINAL REPORT PROCEDURE: XR CHEST 1V AP TECHNIQUE: A portable AP chest radiograph was obtained at 09/12/2017 21:45 ([facility]) . CPT 47889 HISTORY: Chest pain. COMPARISON: No prior studies are available for comparison. FINDINGS: Heart: Mild cardiomegaly. Mediastinum/Vessels: Normal. Lungs/Pleural space: Normal. Elevation of the right diaphragm. Bony thorax: No acute osseous abnormality. Life support devices: None. IMPRESSION: Mild cardiomegaly. No radiographic evidence of acute cardiopulmonary disease.
--- NOTE | 2017-09-12 19:14 | Short Stay Summary ---
Short Stay Documentation Date of service: 09/12/17 Narrative H&P: Patient is a 37-year-old BF G0 who has presented to the emergency room for recheck of her H&H due to anemia found at her REHABILITATION PROGRAM MANAGER's office. Patient states that she is having weakness, chest pain, shortness of breath and dyspnea on exertion. Patient states she has a long history of anemia but lately due to her heavy cycle her anemia has been worse. Patient states that her chest pain is a 3 out of 10. Patient states that it is worse with exertion and better with rest. Patient states her shortness of breath is better with rest and worse with exertion. Patient denies fever and chills. She denies diaphoresis. She will therefore be admitted for a blood transfusion. - History Principal diagnosis: Symptomatic anemia H&P: obtained from office Past Medical History: anemia, other (uterine fibroids) Past Surgical History: Other (myomectomy) Social history: no significant social history, single - Allergies and Medications Current Medications: Allergies No Known Allergies Allergy (Verified 01/17/17 10:29) Home Medications Medication Instructions Recorded Confirmed Last Taken Type Ibuprofen [Motrin 800 MG tab] 800 mg PO QAC 09/12/17 09/12/17 Unknown History Pnv No.95/Ferrous Fum/Folic AC 1 each PO DAILY 09/12/17 09/12/17 Unknown History [ Vitamin Tablet] metroNIDAZOLE [Flagyl TAB] 500 mg PO BID 09/12/17 09/12/17 09/10/17 History Active Medications Acetaminophen (Tylenol) 650 mg PO Q4H PRN PRN Reason: Pain MILD(1-3)/Fever >100.5/[place] Acetaminophen (Tylenol) 650 mg PO ONCE ONE Stop: 09/12/17 19:52 Diphenhydramine HCl (Benadryl) 25 mg IV ONCE ONE Stop: 09/12/17 19:57 Docusate Sodium (Colace) 100 mg PO Q12H PRN PRN Reason: Constipation Parenteral Electrolytes (Normosol-R Ph 7.4) 1,000 mls @ 125 mls/hr IV DIRECT MOO Sodium Chloride (Nacl 0.9% 500 Ml) 500 mls @ 0 mls/hr IV ONCE MOO Stop: 09/13/17 06:00 Multivitamins/Iron/Calcium ( Vitamin) 1 each PO QDAY MOO Zolpidem Tartrate (Ambien) 10 mg PO ONCE PRN PRN Reason: Sleep - Physical exam General appearance: mild distress Integumentary: no rash HEENT: Atraumatic Lungs: Clear to auscultation Breasts: deferred Heart: Regular rate Gastrointestinal: normal Female Genitourinary: deferred Rectal Exam: deferred Extremities: No edema Neurological: Normal gait, Normal speech - Hospital course Hospital course: Unremarkable. She was admitted and received 3 units of blood raising her H/H from 6.7/23.6 up to 8.8/29.8 She is currently feeling well without complaints and denies bleeding, SOB or dyspnea on exertion. - Disposition Condition at discharge: Good Disposition: DC-01 TO HOME OR SELFCARE - Discharge Diagnoses (1) Menorrhagia Status: Chronic Qualifiers: Menorrahagia type: with irregular cycle Qualified Code(s): N92.1 - Excessive and frequent menstruation with irregular cycle (2) Symptomatic anemia Status: Acute Short Stay Discharge Plan Activity: no restrictions Diet: regular Follow up with: PRIMARY MD JEANNIE [Primary Care Provider] - 7 Days STELLA MCMILLAN MD [Staff Physician] - 7 Days Prescriptions: Ferrous Sulfate [Feosol 325 MG tab] 325 mg PO BID #60 tablet Norgestimate-Ethinyl Estradiol [Ortho Tri-Cyclen 28 Tablet] 1 each PO DAILY #30 tablet
[2017-09-12] MEDS ORDERED: TYLENOL PO ONE (19:51)
[2017-09-12] MEDS ORDERED: BENADRYL IV ONE (19:56)
[2017-09-12] MEDS ORDERED: NORMOSOL-R PH 7.4 1,000 ML IV SCH (20:00)
[2017-09-13 00:48] LABS: HCG Qualitative,Urine Negative (Negative)
[2017-09-13 09:00] LABS: Hematocrit 29.8 % (30.3-42.9); Hemoglobin 8.8 gm/dl (10.1-14.3)
[2017-09-13] MEDS ORDERED: PRENATAL VITAMIN PO SCH (10:00)
[2017-09-13 13:08] VITALS: BP 121/62
== END 2017-09-13 13:00 | disposition home or self-care (01) | DRG 761 ==
LOC: ED 12:01 → OB 18:51
PROVIDERS: ADMIT Obstetrics & Gynecology; ATTEND Obstetrics & Gynecology
PROC: 30233N1 Transfusion of Nonautologous Red Blood Cells into Peripheral Vein, Percutaneous Approach (ICD-10-PCS; principal; 2017-09-12)
DX: N92.0 Excessive and frequent menstruation with regular cycle (principal); D64.9 Anemia, unspecified; Z82.49 Family history of ischemic heart disease and other diseases of the circulatory system; G43.909 Migraine, unspecified, not intractable, without status migrainosus
CPT/HCPCS: 36415; 71045; 80053; 81025; 84484; 85018; 85025; 86850; 86900; 86901; 86920; 93005; 93010; J7040; P9016

== ENCOUNTER 2017-10-04 17:48 | Emergency (ER) | payer SELFPAY ==
[2017-10-04 19:17] LABS: Basophils # (Auto) 0.1 K/mm3 (0.0-0.1); Basophils % (Auto) 0.8 % (0.0-1.8); Eosinophils # (Auto) 0.1 K/mm3 (0.0-0.4); Eosinophils % (Auto) 0.8 % (0.0-4.3); Hematocrit 20.6 % (30.3-42.9); Hemoglobin 6.3 gm/dl (10.1-14.3); Lymphocytes # (Auto) 1.9 K/mm3 (1.2-5.4); Lymphocytes % (Auto) 26.9 % (13.4-35.0); Mean Corpuscular HGB Conc 30 % (30-34); Monocytes # (Auto) 0.5 K/mm3 (0.0-0.8); Monocytes % (Auto) 6.6 % (0.0-7.3); Platelet Count 418 K/mm3 (140-440); Red Blood Count 3.05 M/mm3 (3.65-5.03)
[2017-10-04 19:20] LABS: Mean Corpuscular Hemoglobin 21 pg (28-32); Mean Corpuscular Volume 68 fl (79-97)
[2017-10-04 19:40] LABS: Alanine Aminotransferase 10 units/L (7-56); Albumin 4.1 g/dL (3.9-5); BUN/Creatinine Ratio 10; Blood Urea Nitrogen 6 mg/dL (7-17); Hemolysis Index 0
[2017-10-05] MEDS ORDERED: NACL 0.9% 500 ML 500 ML IV ONE ×2 (00:40→03:32)
[2017-10-05] MEDS ORDERED: NORCO 5/325 PO ONE (03:11)
[2017-10-05] MEDS ORDERED: NACL 0.9% 250ML 250 ML ONE (03:23)
[2017-10-05] MEDS ORDERED: NACL 0.9% 500 ML 500 ML ONE (03:29)
--- NOTE | 2017-10-05 06:08 | Emergency Department Report ---
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 Patient has a history of chronic severe anemia secondary to fibroids. Is being worked up for surgery. Patient denies any chest pain, shortness of breath or leg swelling. Patient has had transfusion for symptoms before. ED Past Medical Hx - Past Medical History Hx Hypertension: No Hx Congestive Heart Failure: No Hx Diabetes: No Hx Headaches / Migraines: Yes (migraines) Hx Asthma: No Hx COPD: No Hx HIV: No Additional medical history: fibroids ANEMIA - Surgical History Additional Surgical History: myomectomy - Social History Smoking Status: Never Smoker Substance Use Type: None - Medications Home Medications: Home Medications Medication Instructions Recorded Confirmed Last Taken Type Ibuprofen [Motrin 800 MG tab] 800 mg PO QAC 09/12/17 09/12/17 Unknown History Pnv No.95/Ferrous Fum/Folic AC 1 each PO DAILY 09/12/17 09/12/17 Unknown History [ Vitamin Tablet] metroNIDAZOLE [Flagyl TAB] 500 mg PO BID 09/12/17 09/12/17 09/10/17 History Ferrous Sulfate [Feosol 325 MG tab] 325 mg PO BID #60 tablet 09/13/17 Unknown Rx Norgestimate-Ethinyl Estradiol 1 each PO DAILY #30 tablet 09/13/17 Unknown Rx [Ortho Tri-Cyclen 28 Tablet] ED Review of Systems ROS: Stated complaint: BLOOD TRANSFUSION Other details as noted in HPI Comment: All other systems reviewed and negative Genitourinary: hematuria, abnormal menses, dyspareunia. denies: discharge Physical Exam - Physical Exam Vital Signs: Vital Signs 10/04/17 10/05/17 10/05/17 18:51 02:04 02:11 Temperature 97.9 F Pulse Rate 82 80 88 Respiratory 16 24 17 Rate Blood Pressure 120/50 141/76 O2 Sat by Pulse 100 85 Oximetry 10/05/17 10/05/17 10/05/17 02:21 02:23 02:24 Temperature 97.7 F Pulse Rate 77 Respiratory 15 16 Rate Blood Pressure 141/76 O2 Sat by Pulse 100 99 Oximetry 04/07/18 04/07/18 04/07/18 02:25 02:30 02:35 Temperature Pulse Rate 82 87 84 Respiratory 14 10 L 16 Rate Blood Pressure 141/76 136/77 136/77 O2 Sat by Pulse 100 100 98 Oximetry 10/05/17 10/05/17 10/05/17 02:41 02:45 02:51 Temperature Pulse Rate 88 89 92 H Respiratory 17 13 16 Rate Blood Pressure 136/77 136/77 136/77 O2 Sat by Pulse 100 100 99 Oximetry 10/05/17 10/05/17 10/05/17 02:55 03:00 03:05 Temperature Pulse Rate 88 79 92 H Respiratory 14 16 28 H Rate Blood Pressure 136/77 138/55 138/55 O2 Sat by Pulse 100 100 100 Oximetry 10/05/17 10/05/17 10/05/17 03:11 03:15 03:21 Temperature Pulse Rate 76 75 135 H Respiratory 14 15 18 Rate Blood Pressure 138/55 138/55 138/55 O2 Sat by Pulse 100 100 80 L Oximetry 10/05/17 10/05/17 10/05/17 03:30 03:41 03:51 Temperature Pulse Rate 82 90 77 Respiratory 15 12 15 Rate Blood Pressure 120/63 120/63 120/63 O2 Sat by Pulse 82 L 100 100 Oximetry 10/05/17 10/05/17 10/05/17 04:00 04:11 04:17 Temperature 98 F Pulse Rate 78 70 72 Respiratory 12 16 18 Rate Blood Pressure 118/65 118/65 118/65 O2 Sat by Pulse 100 100 100 Oximetry Physical Exam: - Physical Exam Physical Exam: - General Limitations: No Limitations General appearance: alert, in no apparent distress. - Head Head exam: Present: atraumatic, normocephalic - Eye Eye exam: Present: normal appearance - ENT ENT exam: Present: mucous membranes moist - Neck Neck exam: Present: normal inspection - Respiratory Respiratory exam: Present: normal lung sounds bilaterally. Absent: respiratory distress - Cardiovascular Cardiovascular Exam: Present: normal rhythm, normal rate. Absent: systolic murmur, diastolic murmur, rubs, gallop - GI/Abdominal GI/Abdominal exam: Present: soft, normal bowel sounds gu; patient refused - Extremities Exam Extremities exam: Present: normal inspection - Back Exam Back exam: Present: normal inspection - Neurological Exam Neurological exam: Present: alert, oriented X3 - Psychiatric Psychiatric exam: normal affect and mood - Skin Skin exam: Present: warm, dry, intact, normal color. Absent: rash ED Course Vital Signs 10/04/17 10/05/17 10/05/17 18:51 02:04 02:11 Temperature 97.9 F Pulse Rate 82 80 88 Respiratory 16 24 17 Rate Blood Pressure 120/50 141/76 O2 Sat by Pulse 100 85 Oximetry 10/05/17 10/05/17 10/05/17 02:21 02:23 02:24 Temperature 97.7 F Pulse Rate 77 Respiratory 15 16 Rate Blood Pressure 141/76 O2 Sat by Pulse 100 99 Oximetry 10/05/17 10/05/17 10/05/17 02:25 02:30 02:35 Temperature Pulse Rate 82 87 84 Respiratory 14 10 L 16 Rate Blood Pressure 141/76 136/77 136/77 O2 Sat by Pulse 100 100 98 Oximetry 10/05/17 10/05/17 10/05/17 02:41 02:45 02:51 Temperature Pulse Rate 88 89 92 H Respiratory 17 13 16 Rate Blood Pressure 136/77 136/77 136/77 O2 Sat by Pulse 100 100 99 Oximetry 10/05/17 10/05/17 10/05/17 02:55 03:00 03:05 Temperature Pulse Rate 88 79 92 H Respiratory 14 16 28 H Rate Blood Pressure 136/77 138/55 138/55 O2 Sat by Pulse 100 100 100 Oximetry 10/05/17 10/05/17 10/05/17 03:11 03:15 03:21 Temperature Pulse Rate 76 75 135 H Respiratory 14 15 18 Rate Blood Pressure 138/55 138/55 138/55 O2 Sat by Pulse 100 100 80 L Oximetry 10/05/17 10/05/17 10/05/17 03:30 03:41 03:51 Temperature Pulse Rate 82 90 77 Respiratory 15 12 15 Rate Blood Pressure 120/63 120/63 120/63 O2 Sat by Pulse 82 L 100 100 Oximetry 10/05/17 10/05/17 10/05/17 04:00 04:11 04:17 Temperature 98 F Pulse Rate 78 70 72 Respiratory 12 16 18 Rate Blood Pressure 118/65 118/65 118/65 O2 Sat by Pulse 100 100 100 Oximetry - Reevaluation(s) Reevaluation #1: 10/05/17 06:06 Patient received transfusion [address] Jackson he recommended patient be discharged after transfusion. ED Medical Decision Making - Lab Data Result diagrams: 10/04/17 19:00 10/04/17 19:00 Critical care attestation.: If time is entered above; I have spent that time in minutes in the direct care of this critically ill patient, excluding procedure time. ED Disposition Clinical Impression: Menorrhagia, Severe anemia Disposition: DC-01 TO HOME OR SELFCARE Is pt being admited?: No Does the pt Need Aspirin: No Condition: Stable Instructions: Anemia (ED) Referrals: ELISSA NARAYAN MD [Primary Care Provider] - 3-5 Days
[2017-10-05 06:27] VITALS: BP 129/71
== END 2017-10-05 06:38 | disposition home or self-care (01) ==
LOC: ED 17:48
DX: D64.9 Anemia, unspecified (principal); N92.0 Excessive and frequent menstruation with regular cycle; D21.9 Benign neoplasm of connective and other soft tissue, unspecified; G43.909 Migraine, unspecified, not intractable, without status migrainosus
CPT/HCPCS: 36415; 36430; 80053; 85025; 86850; 86900; 86901; 86920; 99283; J7040; J7050; P9016

== ENCOUNTER 2018-08-22 15:20 | Emergency (ER) | payer SELFPAY ==
--- NOTE | 2018-08-22 15:36 | Emergency Department Report ---
Chief Complaint: Upper Respiratory Infection Stated Complaint: COLD SYMPTOMS Time Seen by Provider: 08/22/18 15:33 - HPI History of Present Illness: WORK SENT HER BC SHE HAD COLD SYMPTOMS FOR WEEKS SNEEZE, SORETHROAT, NO COUGH NO KNOWN FEVER NONTOXIC ON PHONE DURING EXAM NO CP NO SOB PMH ANEMIA OBESE RX NONE PCP NONE CIG NONE ETOH NONE DRUGS NONE PSH MANY YRS AGO ABC INTACT VSS MSE COMPLETED - Exam Vital Signs: Vital Signs 08/22/18 15:26 Temperature 97.9 F Pulse Rate 83 Respiratory 18 Rate Blood Pressure 140/43 O2 Sat by Pulse 100 Oximetry MSE screening note: Focused history and physical exam performed. Due to findings the following was ordered: ED Disposition for MSE Condition: Stable
--- NOTE | 2018-08-22 16:56 | Emergency Department Report ---
Minor Respiratory - HPI Chief Complaint: Upper Respiratory Infection Stated Complaint: COLD SYMPTOMS Time Seen by Provider: 08/22/18 15:33 Duration: 2 weeks Pain Location: Other (headache) Severity: mild (4/10) Minor Respiratory: Yes Rhinorrhea (nasal congestion and runny nose), Yes Able to Tolerate Fluids, Yes Cough (dry cough worse at night), No Sore Throat, No Ear P ain, No Sick Contacts, No Hemoptysis, No Chest Pain, No Shortness of Breath, No Fever Other History: This is a 38-year-old female he reports that she has been having cold symptoms and headache 2 weeks. She is here to be seen. [id number] medication not helping. Denies any shortness of breath or chest pain. She does have a history of migraine headache but she denies headache is like her usual migraine headache. She said pain is 4-10 and feels like pressure to the front of her forehead. No alleviating or exacerbating factors. ED Review of Systems ROS: Stated complaint: COLD SYMPTOMS Other details as noted in HPI Constitutional: denies: chills, fever ENT: denies: ear pain, throat pain, dental pain, congestion Respiratory: cough. denies: shortness of breath, wheezing Cardiovascular: denies: chest pain, palpitations, edema, syncope Gastrointestinal: denies: abdominal pain, nausea, vomiting Musculoskeletal: denies: back pain, joint swelling, arthralgia, myalgia Skin: denies: rash Neurological: denies: headache, numbness, paresthesias, abnormal gait, vertigo ED Past Medical Hx - Past Medical History Previous Medical History?: Yes Hx Hypertension: No Hx Congestive Heart Failure: No Hx Diabetes: No Hx Headaches / Migraines: Yes (migraines) Hx Asthma: No Hx COPD: No Hx HIV: No Additional medical history: fibroids ANEMIA - Surgical History Past Surgical History?: Yes Additional Surgical History: myomectomy - Family History Family history: hypertension - Social History Smoking Status: Never Smoker Substance Use Type: None - Medications Home Medications: Home Medications Medication Instructions Recorded Confirmed Last Taken Type Ibuprofen [Motrin 800 MG tab] 800 mg PO QAC 09/12/17 09/12/17 Unknown History Pnv No.95/Ferrous Fum/Folic AC 1 each PO DAILY 09/12/17 09/12/17 Unknown History [ Vitamin Tablet] metroNIDAZOLE [Flagyl TAB] 500 mg PO BID 09/12/17 09/12/17 09/10/17 History Ferrous Sulfate [Feosol 325 MG tab] 325 mg PO BID #60 tablet 09/13/17 Unknown Rx Norgestimate-Ethinyl Estradiol 1 each PO DAILY #30 tablet 09/13/17 Unknown Rx [Ortho Tri-Cyclen 28 Tablet] Albuterol Sulfate [Ventolin Hfa] 18 gm IH Q6H PRN #1 hfa.aer.ad 08/22/18 Unknown Rx Amoxicillin/K Clav Tab [Augmentin 1 tab PO Q12HR #20 tab 08/22/18 Unknown Rx 875MG TAB] Cetirizine HCl [ZyrTEC] 10 mg PO QAM 14 Days #14 capsule 08/22/18 Unknown Rx Fluticasone [Flonase] 1 spray NS QDAY 14 Days #1 bottle 08/22/18 Unknown Rx Ibuprofen [Motrin] 800 mg PO Q8HR PRN #12 tablet 08/22/18 Unknown Rx methylPREDNISolone [Medrol Dose 4 mg PO DAILY #1 tab.ds.pk 08/22/18 Unknown Rx Michael] Minor Respiratory Exam - Exam General: Vital signs noted. No distress. Alert and acting appropriately. This is a 38-year-old female well-nourished well-developed in no acute distress. HEENT: Yes Moist Mucous Membranes (uvula midline and oral airways patent), Yes Rhinorrhea (nasal mucosa congested with erythema and clear drainage.), Yes Frontal Tenderness, Yes Maxillary Tenderness, No Pharyngeal Erythema, No Pharyngeal Exudates, No Conjuctival Injection Ear: Neither TM Bulge (bilateral TM congested), Neither TM Erythema, Neither EAC Pain, Neither EAC Discharge Neck: Yes Supple (full range of motion and no C-spine tenderness), No Adenopathy Lungs: Yes Good Air Exchange, Yes Wheezes (scattered wheezes in upper lung castro.), Yes Stridor, Yes Cough (dry cough), No Ronchi, No Labored Respirations, No Retractions, No Use of Accessory Muscles, No Other Abnormal Lung Sounds Heart: Yes Regular, No Murmur Abdomen: Yes Normal Bowel Sounds, No Tenderness, No Peritoneal Signs Skin: No Rash, No Edema Neurologic: Alert and oriented 3, no deficits. Musculoskeletal: Unremarkable. No cce. + 2 pulses in all extremities, no neurovascular compromise ED Course Vital Signs 08/22/18 15:26 Temperature 97.9 F Pulse Rate 83 Respiratory 18 Rate Blood Pressure 140/43 O2 Sat by Pulse 100 Oximetry - Reevaluation(s) Reevaluation #1: 08/22/18 17:30 Decadron and DuoNeb given while in the emergency room. Upon reevaluation of lungs her lung sounds are clear. ED Medical Decision Making - Medical Decision Making This is a 38-year-old female here for cold symptoms for 2 weeks. She was found to have acute sinusitis with cough and minimal bronchospasm. She was given Decadron 10 mg IM and DuoNeb 1 treatment with relief of wheezing. I discussed the patient her diagnosis and treatment plan and she was understanding and she is to follow-up with her primary care physician in 3-5 days if she does not have a primary care physician to follow-up at [facility] and she voiced understanding. Vital signs are stable she is afebrile and she is in no acute distress and discharged home with prescription for Medrol Dosepak, Augmentin, Zyrtec, Motrin, Flonase and albuterol inhaler Critical care attestation.: If time is entered above; I have spent that time in minutes in the direct care of this critically ill patient, excluding procedure time. ED Disposition Clinical Impression: Bronchospasm, acute Sinusitis, acute Qualifiers: Sinusitis location: unspecified location Recurrence: not specified as recurrent Qualified Code(s): J01.90 - Acute sinusitis, unspecified Headache Qualifiers: Headache type: unspecified Headache chronicity pattern: acute headache Intractability: not intractable Qualified Code(s): R51 - Headache Disposition: DC-01 TO HOME OR SELFCARE Is pt being admited?: No Does the pt Need Aspirin: No Condition: Stable Instructions: Bronchospasm (ED), Sinusitis (ED), Acute Headache (ED) Additional Instructions: Please take medication as prescribed Follow-up with primary care physician in 3-5 days Take Ventolin inhaler every 6 hours 2 days and then as needed If your condition worsens to include difficulty breathing, swallowing, chest pain, nausea and vomiting and fever does not relief with Motrin please return to the emergency room LOPEZ. Take Motrin for headache and take this medication with food as it can cause irritation to stomach lining Referrals: PRIMARY CARE, [Primary Care Provider] - 3-5 Days [facility] [Outside] - 3-5 Days Forms: Work/School Release Form(ED)
[2018-08-22] MEDS ORDERED: DUONEB *Not for PRN Use IH ONE (16:57)
[2018-08-22] MEDS ORDERED: DECADRON IM STA (16:57)
[2018-08-22 17:59] VITALS: BP 148/52
== END 2018-08-22 18:00 | disposition home or self-care (01) ==
LOC: ED 15:20
DX: J01.90 Acute sinusitis, unspecified (principal); J98.01 Acute bronchospasm; G43.909 Migraine, unspecified, not intractable, without status migrainosus
CPT/HCPCS: 96372; 99282; J1100

== ENCOUNTER 2018-10-23 11:51 | Inpatient (IN) | payer SELFPAY ==
--- NOTE | 2018-10-23 12:23 | Emergency Department Report ---
Blank Doc - Documentation Documentation: This is a 38-year-old female that presents with fatigue, headache, tiredness. Patient is on her menstrual cycle now. PAtient was seen by her PCP and was sent her to the ED for a blood transfusion due to low H/H. This initial assessment/diagnostic orders/clinical plan/treatment(s) is/are subject to change based on patient's health status, clinical progression and re- assessment by fellow clinical providers in the ED. Further treatment and workup at subsequent clinical providers discretion. Patient/guardians urged not to elope from the ED as their condition may be serious if not clinically assessed and managed. Initial orders include: 1- Patient sent to MAIN ED for further evaluation and treatment 2- labs
[2018-10-23 13:10] LABS: Basophils % (Auto) 1.1 % (0.0-1.8); Eosinophils # (Auto) 0.1 K/mm3 (0.0-0.4); Lymphocytes # (Auto) 1.2 K/mm3 (1.2-5.4); Lymphocytes % (Auto) 31.6 % (13.4-35.0); Mean Corpuscular HGB Conc 28 % (30-34); Monocytes # (Auto) 0.3 K/mm3 (0.0-0.8); Monocytes % (Auto) 8.6 % (0.0-7.3); Platelet Count 312 K/mm3 (140-440)
[2018-10-23 13:14] LABS: Hematocrit 21.5 % (30.3-42.9); Hemoglobin 6.1 gm/dl (10.1-14.3); Mean Corpuscular Volume 62 fl (79-97); Red Cell Distribution Width 20.1 % (13.2-15.2)
[2018-10-23 13:28] LABS: BUN/Creatinine Ratio 14; Blood Urea Nitrogen 7 mg/dL (7-17); Calcium 9.4 mg/dL (8.4-10.2); Hemolysis Index 0
[2018-10-23] MEDS ORDERED: NACL 0.9% 500 ML 500 ML IV ONE ×2 (17:04→23:30)
--- NOTE | 2018-10-23 17:09 | Emergency Department Report ---
HPI - General Chief Complaint: Recheck/Abnormal Lab/Rx Time Seen by Provider: 10/23/18 12:21 - HPI HPI: Room 23 The patient is a 38-year-old female presenting with a chief complaint of symptomatic anemia. The patient states she had blood drawn at her primary physician's office 2 weeks ago and yesterday was called to come back to the office. Patient states she was told her hemoglobin was low at 6.5 and she was sent to the ED for blood transfusion. Patient states lately she has felt fatigued with occasional dizziness shortness of breath and dyspnea on exertion. Patient states she has a history of anemia from heavy cycles and states her last cycle started approximately 6 days ago and she's been going through approximately 20 pads per day Location: [See above] Duration: [See above] Quality: [See above] Severity: [See above] Modifying factors: [see above] Context: [see above] Mode of transportation: [not driving] ED Past Medical Hx - Past Medical History Previous Medical History?: Yes Hx Headaches / Migraines: Yes (migraines) Additional medical history: fibroids ANEMIA - Surgical History Past Surgical History?: Yes Additional Surgical History: myomectomy - Family History Family history: no significant - Social History Smoking Status: Never Smoker Substance Use Type: None (denies illicit drug use), Alcohol (rarely) - Medications Home Medications: Home Medications Medication Instructions Recorded Confirmed Last Taken Type Ibuprofen [Motrin 800 MG tab] 800 mg PO QAC 09/12/17 10/23/18 Unknown History Ibuprofen [Motrin] 800 mg PO Q8HR PRN #12 tablet 08/22/18 10/23/18 Unknown Rx ED Review of Systems ROS: Stated complaint: BLOOD TRANSFUSION Other details as noted in HPI Constitutional: malaise Eyes: denies: eye pain ENT: denies: throat pain Respiratory: shortness of breath, SOB with exertion Cardiovascular: denies: chest pain Endocrine: no symptoms reported Gastrointestinal: denies: abdominal pain Genitourinary: abnormal menses Musculoskeletal: denies: back pain Neurological: denies: headache Physical Exam - Physical Exam Vital Signs: Vital Signs 10/23/18 10/23/18 10/23/18 12:22 13:54 16:31 Temperature 98.4 F Pulse Rate 77 74 Respiratory 16 16 Rate Blood Pressure 130/51 Blood Pressure 132/79 [Left] O2 Sat by Pulse 100 100 96 Oximetry Physical Exam: GENERAL: The patient is well-developed well-nourished female lying on stretcher not appearing to be in acute distress. [] HEENT: Normocephalic. Atraumatic. Extraocular motions are intact. Patient has moist mucous membranes. NECK: Supple. Trachea midline CHEST/LUNGS: Clear to auscultation. There is no respiratory distress noted. HEART/CARDIOVASCULAR: Regular. There is no tachycardia. There is no gallop rub or murmur. ABDOMEN: Abdomen is soft, nontender. Patient has normal bowel sounds. There is no abdominal distention. SKIN: There is no rash. There is no edema. There is no diaphoresis. NEURO: The patient is awake, alert, and oriented. The patient is cooperative. The patient has normal speech and gait. MUSCULOSKELETAL: There is no evidence of acute injury. ED Course Vital Signs 10/23/18 10/23/18 10/23/18 12:22 13:54 16:31 Temperature 98.4 F Pulse Rate 77 74 Respiratory 16 16 Rate Blood Pressure 130/51 Blood Pressure 132/79 [Left] O2 Sat by Pulse 100 100 96 Oximetry - Consultations Consultation #1: 10/23/18 19:[address] Zamora-Will admit ED Medical Decision Making - Lab Data Result diagrams: 10/23/18 12:45 10/23/18 12:45 Laboratory Tests 10/23/18 10/23/18 10/23/18 12:45 12:45 12:45 WBC 3.9 L RBC 3.50 L Hgb 6.1 L Hct 21.5 L MCV 62 L MCH 18 L MCHC 28 L RDW 20.1 H Plt Count 312 Lymph % (Auto) 31.6 Ness % (Auto) 8.6 H Eos % (Auto) 2.0 Baso % (Auto) 1.1 Lymph # 1.2 Ness # 0.3 Eos # 0.1 Baso # 0.0 Seg Neutrophils % 56.7 Seg Neutrophils # 2.2 Sodium 138 Potassium 3.6 Chloride 101.9 Carbon Dioxide 23 Anion Gap 17 BUN 7 Creatinine 0.5 L Estimated GFR > 60 BUN/Creatinine Ratio 14 Glucose 107 H Calcium 9.4 HCG, Qual Blood Type A POSITIVE Antibody Screen Negative Crossmatch See Detail 10/23/18 17:00 WBC RBC Hgb Hct MCV MCH MCHC RDW Plt Count Lymph % (Auto) Ness % (Auto) Eos % (Auto) Baso % (Auto) Lymph # Ness # Eos # Baso # Seg Neutrophils % Seg Neutrophils # Sodium Potassium Chloride Carbon Dioxide Anion Gap BUN Creatinine Estimated GFR BUN/Creatinine Ratio Glucose Calcium HCG, Qual Negative Blood Type Antibody Screen Crossmatch - Radiology Data Radiology results: pending (pelvic ultrasound) - Differential Diagnosis menorrhagia, symptomatic anemia, missed Critical care attestation.: If time is entered above; I have spent that time in minutes in the direct care of this critically ill patient, excluding procedure time. ED Disposition Clinical Impression: Symptomatic anemia, Menorrhagia Disposition: OP ADMIT IP TO THIS HOSP Is pt being admited?: Yes Does the pt Need Aspirin: No Condition: Fair Referrals: STELLA ZAMORA MD [Primary Care Provider] - 3-5 Days Time of Disposition: 19:38 (Dr. Zamora notified)
--- NOTE | 2018-10-23 20:06 | Ultrasound Report ---
PROCEDURE: US PELVIC COMPLETE TECHNIQUE: Transabdominal grayscale and color-flow imaging of the pelvis was performed. HISTORY: menorrhagia date of last menstrual period is not provided. COMPARISONS: None FINDINGS: The uterus measures 12.4 cm x 7.5 cm x 8.2 cm. There is increased thickness of the endometrium (24.5 mm). There is demonstration of several fibroids which measure approximately 4 cm, 2.7 cm and 2 cm in size. The right ovary measures 2.2 cm x 2 cm x 1.8 cm and is unremarkable in appearance. The left ovary measures 2.4 cm x 2.1 cm x 2.6 cm and is unremarkable in appearance. Flow is demonstrated in both ovaries utilizing color flow imaging. No free fluid is demonstrated in the pelvis. IMPRESSION: 1. Increased thickness of the endometrium (24.5 mm). 2. Fibroid uterus. This document is electronically signed by Lizy Armstrong MD., October 23 2018 08:04:34 PM ET
--- NOTE | 2018-10-23 21:39 | Short Stay Summary ---
Short Stay Documentation Date of service: 10/23/18 Narrative H&P: The patient is a 38-year-old black female G0 LMP 10/09/18 presents to [facility] with a chief complaint of symptomatic anemia. The patient states she had blood drawn at her primary physician's office 2 weeks ago and yesterday was called to come back to the office. Patient states she was told her hemoglobin was low at 6.5 and she was sent to the ED for blood transfusion. She states lately she has felt fatigued with occasional dizziness shortness of breath and dyspnea on exertion. She has a history of anemia from heavy cycles and states her last cycle started approximately 6 days ago and she's been going through approximately 20 pads per day. She was last hospitalized for a blood transfusion 09/12/17, but did not follow up with me. - History Principal diagnosis: Symptomatic anemia H&P: obtained from office Past Medical History: anemia, other (uterine fibroids) Past Surgical History: Other (myomectomy) Social history: no significant social history, single - Allergies and Medications Current Medications: Allergies No Known Allergies Allergy (Verified 01/17/17 10:29) Home Medications Medication Instructions Recorded Confirmed Last Taken Type Ibuprofen [Motrin 800 MG tab] 800 mg PO QAC 09/12/17 10/23/18 Unknown History Ibuprofen [Motrin] 800 mg PO Q8HR PRN #12 tablet 08/22/18 10/23/18 Unknown Rx Active Medications Medroxyprogesterone Acetate (Provera) 10 mg PO QDAY ONE Stop: 10/24/18 18:31 Last Admin: 10/23/18 20:40 Dose: 10 mg Documented by: - Physical exam General appearance: mild distress Integumentary: no rash HEENT: Atraumatic Lungs: Clear to auscultation Breasts: deferred Heart: Regular rate Gastrointestinal: normal Female Genitourinary: deferred Rectal Exam: deferred Extremities: no ischemia Neurological: Normal gait, Normal speech - Hospital course Hospital course: Unremarkable. She was admitted and received 2 units of blood raising her H/H from 6.1/21.5 up to 8.0/28.5 Her pelvic u/s showed an enlarged uterus 12.4 x 7.5 x 8.2cm with 3 fibroids and a thickened endometrium. She is currently feeling well without complaints and denies bleeding, SOB or dyspnea on exertion. She states she will follow up in the office for a Pap and endometrial biopsy. - Disposition Condition at discharge: Good Disposition: DC-01 TO HOME OR SELFCARE - Discharge Diagnoses (1) Symptomatic anemia Status: Resolved (2) Menorrhagia Status: Chronic Qualifiers: Menorrahagia type: with irregular cycle (3) Fibroids Status: Acute Qualifiers: Uterine leiomyoma location: intramural and subserous Qualified Code(s): D25.1 - Intramural leiomyoma of uterus; D25.2 - Subserosal leiomyoma of uterus Short Stay Discharge Plan Activity: no restrictions Diet: regular Follow up with: STELLA MCMILLAN MD [Primary Care Provider] - 3-5 Days Prescriptions: Ferrous Sulfate [Feosol 325 MG tab] 325 mg PO BID #60 tablet medroxyPROGESTERone ACETATE [Provera] 10 mg PO QDAY #14 tablet
[2018-10-23] MEDS ORDERED: MILK OF MAGNESIA PO PRN (21:41)
[2018-10-23] MEDS ORDERED: TYLENOL PO PRN (21:41)
[2018-10-23] MEDS ORDERED: COLACE PO PRN (21:41)
[2018-10-23] MEDS ORDERED: BENADRYL IV ONE ×2 (21:41→23:55)
[2018-10-23] MEDS ORDERED: LACTATED RINGERS 1,000 ML IV SCH (22:00)
[2018-10-23] MEDS ORDERED: TYLENOL PO ONE (23:45)
[2018-10-24 08:41] VITALS: BP 121/57
[2018-10-24] MEDS ORDERED: PRENATAL VITAMIN PO SCH (10:00)
[2018-10-24 10:15] LABS: Hematocrit 28.5 % (30.3-42.9)
[2018-10-24] MEDS ORDERED: AFLURIA QUAD 2018-2019 SYRINGE IM ONE (12:00)
[2018-10-24] MEDS ORDERED: PROVERA PO ONE (18:30)
== END 2018-10-24 14:20 | disposition home or self-care (01) | DRG 812 ==
LOC: ED 11:51 → OB 19:35
PROVIDERS: ADMIT Obstetrics & Gynecology; ATTEND Obstetrics & Gynecology
PROC: 30233N1 Transfusion of Nonautologous Red Blood Cells into Peripheral Vein, Percutaneous Approach (ICD-10-PCS; principal; 2018-10-23)
DX: D64.9 Anemia, unspecified (principal); N92.0 Excessive and frequent menstruation with regular cycle; G43.909 Migraine, unspecified, not intractable, without status migrainosus; D25.1 Intramural leiomyoma of uterus
CPT/HCPCS: 36415; 36430; 76856; 80048; 84703; 85014; 85018; 85025; 86850; 86900; 86901; 86920; 90686; 93005; 93010; G0378; J1200; J7040; J7120; P9016

== ENCOUNTER 2021-02-04 15:36 | Emergency (ER) | payer SELFPAY ==
--- NOTE | 2021-02-04 16:43 | XRay Report ---
CHEST 2 VIEWS INDICATION: SOB. COMPARISON: 09/12/2017. FINDINGS: Support devices: None. Heart: Within normal limits. Lungs/Pleura: No acute air space or interstitial disease. No significant pleural effusion. IMPRESSION: No acute findings. Signer Name: Jorge Luis Barragan MD Signed: 02/04/2021 4:39 PM Workstation Name: [id number]
[2021-02-04 17:15] LABS: Eosinophils # (Auto) 0.1 K/mm3 (0.0-0.4); Eosinophils % (Auto) 1.4 % (0.0-4.3); Lymphocytes # (Auto) 1.7 K/mm3 (1.2-5.4); Lymphocytes % (Auto) 35.6 % (13.4-35.0); Mean Corpuscular HGB Conc 28 % (30-34); Monocytes # (Auto) 0.5 K/mm3 (0.0-0.8); Monocytes % (Auto) 9.8 % (0.0-7.3); Platelet Count 244 K/mm3 (140-440); Red Blood Count 3.59 M/mm3 (3.65-5.03)
[2021-02-04 17:22] LABS: Hemoglobin 6.4 gm/dl (10.1-14.3)
[2021-02-04] MEDS ORDERED: MECLIZINE 25 MG TAB PO ONE (17:22)
[2021-02-04 17:23] LABS: Hematocrit 22.7 % (30.3-42.9); Mean Corpuscular Volume 63 fl (79-97); Red Cell Distribution Width 20.9 % (13.2-15.2)
[2021-02-04 17:29] LABS: Alanine Aminotransferase 11 units/L (7-56); Albumin 4.1 g/dL (3.9-5); Blood Urea Nitrogen 7 mg/dL (7-17); Calcium 9.1 mg/dL (8.4-10.2); Hemolysis Index 0
--- NOTE | 2021-02-04 17:29 | Emergency Department Report ---
ED Dizziness HPI - General Chief Complaint: Dyspnea/Respdistress Stated Complaint: DIZINESS NAUSEA,SOB Time Seen by Provider: 02/04/21 17:12 Source: patient Mode of arrival: Ambulatory Limitations: No Limitations - History of Present Illness Initial Comments: 40-year-old female with past medical history of obesity, iron deficiency anemia, and menorrhagia requiring blood transfusion presents to the hospital complaints intermittent dizziness x10 days and shortness of breath x1 year worsening for the past week. Patient is describes dizziness as a spinning sensation with a mild lightheaded component. Positive associated nausea without vomiting. Mounika gandara does have heavy menstrual cycles with LMP 01/09. Patient denies headache, blurry vision, or chest pain, abdominal pain, melena, hematochezia, focal weakness, focal numbness, dysarthria, dysphagia, ataxia, recent travel, history of PE/DVT, hormone use, or calf tenderness. Patient currently denies vaginal bleeding and is not currently taking iron tablets due to constipation nausea and vomiting side effects. - Related Data Home Medications Medication Instructions Recorded Confirmed Last Taken Ibuprofen [Motrin 800 MG tab] 800 mg PO QAC 09/12/17 10/23/18 Unknown Previous Rx's Medication Instructions Recorded Last Taken Type Ibuprofen [Motrin] 800 mg PO Q8HR PRN #12 tablet 08/22/18 Unknown Rx medroxyPROGESTERone ACETATE 10 mg PO QDAY #14 tablet 10/24/18 Unknown Rx [Provera] Docusate Sodium [Colace] 100 mg PO BID PRN #30 capsule 02/04/21 Unknown Rx Ferrous Sulfate [Feosol 325 MG tab] 325 mg PO DAILY #60 tablet 02/04/21 Unknown Rx Ondansetron [Zofran Odt] 4 mg PO Q8HR PRN #20 tab.rapdis 02/04/21 Unknown Rx Allergies Allergy/AdvReac Type Severity Reaction Status Date / Time No Known Allergies Allergy Verified 02/04/21 16:00 ED Review of Systems ROS: Stated complaint: DIZINESS NAUSEA,SOB Other details as noted in HPI Comment: All other systems reviewed and negative ED Past Medical Hx - Past Medical History Hx Congestive Heart Failure: No Hx Diabetes: No Hx Headaches / Migraines: Yes (migraines) Hx Asthma: No Hx COPD: No Additional medical history: fibroids ANEMIA - Surgical History Additional Surgical History: myomectomy - Social History Smoking Status: Never Smoker Substance Use Type: None (denies illicit drug use), Alcohol (rarely) - Medications Home Medications: Home Medications Medication Instructions Recorded Confirmed Last Taken Type Ibuprofen [Motrin 800 MG tab] 800 mg PO QAC 09/12/17 10/23/18 Unknown History Ibuprofen [Motrin] 800 mg PO Q8HR PRN #12 tablet 08/22/18 10/23/18 Unknown Rx medroxyPROGESTERone ACETATE 10 mg PO QDAY #14 tablet 10/24/18 Unknown Rx [Provera] Docusate Sodium [Colace] 100 mg PO BID PRN #30 capsule 02/04/21 Unknown Rx Ferrous Sulfate [Feosol 325 MG tab] 325 mg PO DAILY #60 tablet 02/04/21 Unknown Rx Ondansetron [Zofran Odt] 4 mg PO Q8HR PRN #20 tab.rapdis 02/04/21 Unknown Rx ED Physical Exam - General Limitations: No Limitations - Other Other exam information: General: No acute distress Head: Atraumatic Eyes: normal appearance, no nystagmus, unable to reproduce vertigo with lying supine with head directed left and right. ENT: Moist mucous membranes Neck: Normal appearance, no midline tenderness Chest: Clear to auscultation bilaterally CV: Regular rate and rhythm Abdomen: Soft, normal bowel sounds, nontender, nondistended, no rebound or guarding Back: Normal inspection Extremity: Normal inspection, full range of motion Neuro: Alert O x 3, no facial asymmetry, speech clear, no gross motor sensory deficit, [id number] function intact. Steady gait without ataxia Psych: Appropriate behavior Skin: No rash ED Course Vital Signs 02/04/21 02/04/21 02/04/21 16:00 18:05 18:11 Temperature 98.3 F Pulse Rate 70 76 Respiratory 18 18 Rate Blood Pressure 157/73 Blood Pressure [Right] O2 Sat by Pulse 100 100 99 Oximetry 02/04/21 02/04/21 02/04/21 18:15 19:10 20:01 Temperature 98.1 F Pulse Rate 84 85 69 Respiratory 14 16 18 Rate Blood Pressure 129/71 122/56 Blood Pressure 122/56 [Right] O2 Sat by Pulse 100 100 100 Oximetry 02/04/21 02/04/21 02/04/21 20:51 21:01 21:31 Temperature Pulse Rate 72 71 73 Respiratory 19 14 17 Rate Blood Pressure 137/80 137/80 154/85 Blood Pressure [Right] O2 Sat by Pulse 100 100 100 Oximetry 02/04/21 02/04/21 02/04/21 21:41 21:51 22:01 Temperature Pulse Rate 77 80 79 Respiratory 20 18 17 Rate Blood Pressure 126/56 126/56 135/58 Blood Pressure [Right] O2 Sat by Pulse 100 100 100 Oximetry 02/04/21 02/04/21 02/04/21 22:11 22:21 22:38 Temperature Pulse Rate 71 71 70 Respiratory 17 17 18 Rate Blood Pressure 118/60 118/60 Blood Pressure [Right] O2 Sat by Pulse 100 100 100 Oximetry 02/04/21 02/04/21 02/04/21 22:40 22:50 23:00 Temperature Pulse Rate 74 52 L 77 Respiratory 17 21 19 Rate Blood Pressure 145/68 139/83 123/51 Blood Pressure [Right] O2 Sat by Pulse 100 100 100 Oximetry 02/04/21 02/04/21 02/04/21 23:06 23:10 23:20 Temperature Pulse Rate 87 83 89 Respiratory 20 10 L 27 H Rate Blood Pressure 123/51 142/78 142/78 Blood Pressure [Right] O2 Sat by Pulse 98 96 99 Oximetry 02/04/21 02/04/21 02/04/21 23:30 23:40 23:50 Temperature Pulse Rate 82 68 77 Respiratory 23 18 19 Rate Blood Pressure 133/53 152/73 152/73 Blood Pressure [Right] O2 Sat by Pulse 100 100 100 Oximetry 02/05/21 02/05/21 02/05/21 00:00 00:10 00:20 Temperature Pulse Rate 71 71 72 Respiratory 17 17 16 Rate Blood Pressure 142/78 153/62 153/62 Blood Pressure [Right] O2 Sat by Pulse 100 100 100 Oximetry 02/05/21 02/05/21 00:30 02:16 Temperature 98.1 F Pulse Rate 71 70 Respiratory 18 19 Rate Blood Pressure 150/71 Blood Pressure 146/73 [Right] O2 Sat by Pulse 100 100 Oximetry ED Medical Decision Making - Lab Data Result diagrams: 02/04/21 16:32 02/04/21 16:32 Lab Results 02/04/21 02/04/21 02/04/21 Range/Units 16:32 16:32 17:39 WBC 4.7 (4.5-11.0) K/mm3 RBC 3.59 L (3.65-5.03) M/mm3 Hgb 6.4 L (10.1-14.3) gm/dl Hct 22.7 L (30.3-42.9) % MCV 63 L (79-97) fl MCH 18 L (28-32) pg MCHC 28 L (30-34) % RDW 20.9 H (13.2-15.2) % Plt Count 244 (140-440) K/mm3 Lymph % (Auto) 35.6 H (13.4-35.0) % [place] % (Auto) 9.8 H (0.0-7.3) % Eos % (Auto) 1.4 (0.0-4.3) % Baso % (Auto) 1.0 (0.0-1.8) % Lymph # (Auto) 1.7 (1.2-5.4) K/mm3 [place] # (Auto) 0.5 (0.0-0.8) K/mm3 Eos # (Auto) 0.1 (0.0-0.4) K/mm3 Baso # (Auto) 0.0 (0.0-0.1) K/mm3 Seg Neutrophils % 52.2 (40.0-70.0) % Seg Neutrophils # 2.4 (1.8-7.7) K/mm3 Sodium 136 L (137-145) mmol/L Potassium 3.9 (3.6-5.0) mmol/L Chloride 103.8 (98-107) mmol/L Carbon Dioxide 22 (22-30) mmol/L Anion Gap 14 mmol/L BUN 7 (7-17) mg/dL Creatinine 0.6 (0.6-1.2) mg/dL Estimated GFR > 60 ml/min BUN/Creatinine Ratio 12 % Glucose 84 (65-100) mg/dL Calcium 9.1 (8.4-10.2) mg/dL Total Bilirubin 0.20 (0.1-1.2) mg/dL AST 16 (5-40) units/L ALT 11 (7-56) units/L Alkaline Phosphatase 47 (35-129) units/L Troponin T < 0.010 (0.00-0.029) ng/mL Total Protein 7.4 (6.3-8.2) g/dL Albumin 4.1 (3.9-5) g/dL Albumin/Globulin Ratio 1.2 % HCG, Quant < 2 (0-4) mIU/mL Blood Type Antibody Screen Crossmatch 02/04/21 Range/Units 17:39 WBC (4.5-11.0) K/mm3 RBC (3.65-5.03) M/mm3 Hgb (10.1-14.3) gm/dl Hct (30.3-42.9) % MCV (79-97) fl MCH (28-32) pg MCHC (30-34) % RDW (13.2-15.2) % Plt Count (140-440) K/mm3 Lymph % (Auto) (13.4-35.0) % [place] % (Auto) (0.0-7.3) % Eos % (Auto) (0.0-4.3) % Baso % (Auto) (0.0-1.8) % Lymph # (Auto) (1.2-5.4) K/mm3 [place] # (Auto) (0.0-0.8) K/mm3 Eos # (Auto) (0.0-0.4) K/mm3 Baso # (Auto) (0.0-0.1) K/mm3 Seg Neutrophils % (40.0-70.0) % Seg Neutrophils # (1.8-7.7) K/mm3 Sodium (137-145) mmol/L Potassium (3.6-5.0) mmol/L Chloride (98-107) mmol/L Carbon Dioxide (22-30) mmol/L Anion Gap mmol/L BUN (7-17) mg/dL Creatinine (0.6-1.2) mg/dL Estimated GFR ml/min BUN/Creatinine Ratio % Glucose (65-100) mg/dL Calcium (8.4-10.2) mg/dL Total Bilirubin (0.1-1.2) mg/dL AST (5-40) units/L ALT (7-56) units/L Alkaline Phosphatase (35-129) units/L Troponin T (0.00-0.029) ng/mL Total Protein (6.3-8.2) g/dL Albumin (3.9-5) g/dL Albumin/Globulin Ratio % HCG, Quant (0-4) mIU/mL Blood Type A POSITIVE Antibody Screen Negative Crossmatch See Detail - EKG Data -: EKG Interpreted by Me EKG shows normal: sinus rhythm, ST-T waves (No STEMI) Rate: normal (74) - Medical Decision Making 40-year female presents to the hospital symptomatic anemia with history of menorrhagia and iron deficiency anemia. Patient received 1 unit of PRBCs in the ED. She did develop some itching to bilateral wrists without rash. Patient has had similar itching in the past requiring pretreatment with Benadryl prior to blood transfusion. Patient did not divulge information prior to initiation of blood. Patient received IV Benadryl in the ED with improvement of pruritus. No fever, shortness of breath, or swelling noted. Patient discharged once transfusion complete with prescriptions and recommended follow-up. No active vaginal bleeding at this time and patient denies symptoms of GI bleed Critical Care Time: No Critical care attestation.: If time is entered above; I have spent that time in minutes in the direct care of this critically ill patient, excluding procedure time. ED Disposition Clinical Impression: Symptomatic anemia Disposition: DC-01 TO HOME OR SELFCARE Is pt being admited?: No Does the pt Need Aspirin: No Condition: Stable Instructions: Preventing Iron Deficiency Anemia, Adult, Blood Transfusion, Adult, Care After Additional Instructions: Take the medication as prescribed. Follow-up with your doctor or doctor/clinic provided. Return if symptoms worsen as indicated by your discharge instructions. Prescriptions: Docusate Sodium [Colace] 100 mg PO BID PRN #30 capsule PRN Reason: Constipation Ferrous Sulfate [Feosol 325 MG tab] 325 mg PO DAILY #60 tablet Ondansetron [Zofran Odt] 4 mg PO Q8HR PRN #20 tab.rapdis PRN Reason: Nausea And Vomiting Referrals: PRIMARY CARE, [Primary Care Provider] - 3-5 Days CALLIE GARCIA MD [Referring] - 3-5 Days (Camera Mechanic) MIGUEL TOMAS MD [Staff Physician] - 3-5 Days (SYSTEMS SECURITY CONSULTANT) MARIALUISA GREENBERG MD [Staff Physician] - 3-5 Days (Primary care doctor) [facility] [Provider Group] - 3-5 Days (Primary care clinic) Forms: Work/School Release Form(ED) - Assessment Assessment Interval: Baseline - Level of Consciousness 1a. Level of Consciousness: alert/keenly responsive - LOC Questions 1b. LOC Questions: answers both correctly - LOC Command 1c. LOC Commands: performs tasks correctly - Best Gaze 2. Best Gaze: normal - Visual 3. Visual: no visual loss - Facial Palsy 4. Facial Palsy: normal symmetrical movement - Motor Arm 5a. Motor Arm Left: no drift 5b. Motor Arm Right: no drift - Motor Leg 6a. Motor Leg Left: no drift 6b. Motor Leg Right: no drift - Limb Ataxia 7. Limb Ataxia: absent - Sensory 8. Sensory: normal - Best Language 9. Best Language: no aphasia - Dysarthria 10. Dysarthria: normal - Extinction and Inattention 11. Extinction/Inattention: no abnormality - Scoring Total Score: 0 Stroke Severity: No Stroke Symptoms
[2021-02-04] MEDS ORDERED: SODIUM CHLORIDE 0.9% 500 ML 500 ML IV ONE (17:34)
[2021-02-04 17:46] LABS: BUN/Creatinine Ratio 12
[2021-02-04] MEDS ORDERED: SODIUM CHLORIDE 0.9% 500 ML 500 ML IV SCH (21:00)
[2021-02-04] MEDS ORDERED: diphenhydrAMINE 50 MG/ML VIAL IV ONE (22:58)
[2021-02-05 02:17] VITALS: BP 146/73
--- NOTE | 2021-02-05 13:36 | Electrocardiograph Report ---
[facility] Test Date: 2021-02-04 Test Time: 16:04:32 Pat Name: PERNELL GOMEZ Department: Room: Gender: F Twisting Operator: ANEL : 1980 Requested By: ENEDINA DANIELLE Order Number: [id number] Reading MD: Kennedi Amato Measurements Intervals [place] Rate: 74 P: 19 OR: 190 QRS: 20 QRSD: 77 T: 4 QT: 385 QTc: 427 Interpretive Statements Sinus arrhythmia Low voltage, precordial leads No previous ECG available for comparison Electronically Signed On 02-05-2021 13:36:22 EDT by Kennedi Amato
== END 2021-02-05 02:32 | disposition home or self-care (01) ==
LOC: ED 15:36
DX: D64.9 Anemia, unspecified (principal); G43.909 Migraine, unspecified, not intractable, without status migrainosus; Z79.899 Other long term (current) drug therapy
CPT/HCPCS: 36415; 36430; 71046; 80053; 84484; 84702; 85025; 86850; 86900; 86901; 86920; 93005; 96361; 96374; 99284; J1200; J7040; P9016

== ENCOUNTER 2021-09-25 12:20 | Emergency (ER) | payer SELFPAY ==
[2021-09-25 13:32] VITALS: BP 123/81
--- NOTE | 2021-09-25 20:29 | Event Note ---
ED Screening Note Date of service: 09/25/21 Time: 20:27 ED Screening Note: 41-year-old black female with a past medical history of anemia presents to the emergency department for evaluation of 1 month history of dizziness, fatigue, and pain to left calf and left posterior thigh area. She states that pain and dizziness has been worse the last few days and she has now developed chest pain or shortness of breath. She denies hemoptysis. This initial assessment/diagnostic orders/clinical plan/treatment(s) is/are subject to change based on patients health status, clinical progression and re- assessment by fellow clinical providers in the ED. Further treatment and workup at subsequent clinical providers discretion. Patient/guardian urged not to elope from the ED as their condition may be serious if not clinically assessed and managed. Initial orders include: CMP, CBC, troponin, D-dimer, UA, urine , and EKG.
[2021-09-25 20:50] LABS: Hematocrit 23.2 % (30.3-42.9); Hemoglobin 6.8 gm/dl (10.1-14.3); Mean Corpuscular HGB Conc 29 % (30-34); Platelet Count 330 K/mm3 (140-440); Red Blood Count 3.71 M/mm3 (3.65-5.03); Red Cell Distribution Width 19.2 % (13.2-15.2)
[2021-09-25 20:53] LABS: Mean Corpuscular Volume 63 fl (79-97)
[2021-09-25 21:13] LABS: Alanine Aminotransferase 11 units/L (7-56); Albumin 4.3 g/dL (3.9-5); Blood Urea Nitrogen 7 mg/dL (7-17); Calcium 10.1 mg/dL (8.4-10.2); Hemolysis Index 24
[2021-09-25 21:18] LABS: BUN/Creatinine Ratio 14
--- NOTE | 2021-09-25 21:22 | Emergency Department Report ---
ED General Adult HPI - General Chief complaint: Extremity Problem,Nontraumatic Stated complaint: RT LEG SWELLING/DIZZY Time Seen by Provider: 09/25/21 21:06 Source: patient, RN notes reviewed, old records reviewed Mode of arrival: Ambulatory Limitations: No Limitations - History of Present Illness Initial comments: During the history and physical examination, I am chaperoned by Jacqueline Antonio This patient is a 41-year-old female. She states that she is not . She has a history of chronic anemia and body mass index of 58.9. The patient presents to the ER today with a complaint of intermittent central chest wall pain, which does not radiate to the back, arms or neck This has been going on for about a month. The patient also describes intermittent shortness of breath which is not exertional. The patient also describes lightheadedness and dizziness, without loss of consciousness, present for about a month. She also describes nontraumatic left lateral and posterior thigh and hamstring pain, present for about a month. Patient reports poor sleep hygiene, and only sleeps 3 to 4 hours per night. Patient denies headache, neck pain, abdominal pain, vomiting, diaphoresis, travel, surgery, immobilization, DVT/PE risk factors. She denies the possibility of , and further reports that she has not delivered her given in the past 6 weeks. -: week(s) Location: chest, left, lower extremity Severity scale (0 -10): 10 Quality: aching Consistency: intermittent Improves with: rest Worsens with: movement, other (Movement and palpation) - Related Data Previous Rx's Medication Instructions Recorded Last Taken Type Ibuprofen [Motrin] 800 mg PO Q8HR PRN #12 tablet 08/22/18 Unknown Rx medroxyPROGESTERone ACETATE 10 mg PO QDAY #14 tablet 10/24/18 Unknown Rx [Provera] Ondansetron [Zofran Odt] 4 mg PO Q8HR PRN #20 tab.rapdis 02/04/21 Unknown Rx Docusate Sodium [Colace CAP] 100 mg PO BID PRN #30 capsule 09/25/21 Unknown Rx Ferrous Sulfate [Feosol 325 MG tab] 325 mg PO DAILY #60 tablet 09/25/21 Unknown Rx Ibuprofen [Motrin 800 MG tab] 600 mg PO Q6HR PRN #30 tab 09/25/21 Unknown Rx Allergies Allergy/AdvReac Type Severity Reaction Status Date / Time No Known Allergies Allergy Verified 02/04/21 16:00 ED Review of Systems ROS: Stated complaint: RT LEG SWELLING/DIZZY Other details as noted in HPI Constitutional: denies: fever Eyes: denies: eye discharge Respiratory: shortness of breath. denies: cough Cardiovascular: chest pain (Chest wall pain) Musculoskeletal: arthralgia, myalgia Neurological: weakness. denies: numbness, paresthesias, abnormal gait Hematological/Lymphatic: denies: easy bleeding ED Past Medical Hx - Past Medical History Hx Congestive Heart Failure: No Hx Diabetes: No Hx Headaches / Migraines: Yes (migraines) Hx Asthma: No Hx COPD: No Additional medical history: fibroids ANEMIA - Surgical History Additional Surgical History: myomectomy - Social History Smoking Status: Never Smoker Substance Use Type: None (denies illicit drug use), Alcohol (rarely) - Medications Home Medications: Home Medications Medication Instructions Recorded Confirmed Last Taken Type Ibuprofen [Motrin] 800 mg PO Q8HR PRN #12 tablet 08/22/18 10/23/18 Unknown Rx medroxyPROGESTERone ACETATE 10 mg PO QDAY #14 tablet 10/24/18 Unknown Rx [Provera] Ondansetron [Zofran Odt] 4 mg PO Q8HR PRN #20 tab.rapdis 02/04/21 Unknown Rx Docusate Sodium [Colace CAP] 100 mg PO BID PRN #30 capsule 09/25/21 Unknown Rx Ferrous Sulfate [Feosol 325 MG tab] 325 mg PO DAILY #60 tablet 09/25/21 Unknown Rx Ibuprofen [Motrin 800 MG tab] 600 mg PO Q6HR PRN #30 tab 09/25/21 Unknown Rx ED Physical Exam - General Limitations: No Limitations General appearance: alert, in no apparent distress, obese - Head Head exam: Present: atraumatic, normocephalic - Eye Eye exam: Present: normal appearance, PERRL, EOMI, other (Visual acuity intact to finger counting, color perception, reading at a close distance). Absent: nystagmus - ENT ENT exam: Present: normal exam, normal orophraynx, mucous membranes moist, normal external ear exam - Neck Neck exam: Present: normal inspection, full ROM. Absent: tenderness, meningismus - Respiratory Respiratory exam: Present: normal lung sounds bilaterally, chest wall tenderness. Absent: respiratory distress, wheezes, rales, rhonchi, stridor, decreased breath sounds - Cardiovascular Cardiovascular Exam: Present: regular rate, normal rhythm, normal heart sounds. Absent: bradycardia, tachycardia, irregular rhythm, systolic murmur, diastolic murmur, rubs, gallop - GI/Abdominal GI/Abdominal exam: Present: soft. Absent: distended, tenderness, guarding, rebound, rigid, pulsatile mass - Extremities Exam Extremities exam: Present: normal inspection, full ROM, tenderness (There is reproducible left lateral thigh, and hamstring tenderness. There is no redness, pus or streaking), pedal edema (1+ edema in the bilateral lower extremity), other (2+ pulses noted in the bilateral upper and lower extremities. There is no palpable cord. negative Homans sign. Muscular compartments are soft. The pelvis is stable.). Absent: calf tenderness - Back Exam Back exam: Present: normal inspection, full ROM. Absent: tenderness, CVA tenderness (R), CVA tenderness (L), paraspinal tenderness, vertebral tenderness - Neurological Exam Neurological exam: Present: alert (There is no past-pointing. There is normal [id number]. There is a normal gait. There is a negative pronator drift), oriented X3, normal gait, reflexes normal, other (2+ pulses noted in the bilateral upper and lower extremities. There is no palpable cord. negative Homans sign. Muscular compartments are soft. The pelvis is stable.). Absent: motor sensory deficit - Psychiatric Psychiatric exam: Present: normal affect, normal mood - Skin Skin exam: Present: warm, dry, intact, normal color. Absent: rash ED Course Vital Signs 09/25/21 13:30 Temperature 97.7 F Pulse Rate 69 Respiratory 18 Rate Blood Pressure 123/81 [Right] O2 Sat by Pulse 100 Oximetry - Reevaluation(s) Reevaluation #1: 09/25/21 22:44 Differential diagnosis, including but not limited to: Obstructive sleep apnea, costochondritis, GERD, gastritis, hiatal hernia, chronic microcytic anemia Musculoskeletal pain, morbid obesity, sciatica Assessment and plan: 41-year-old female with multiple complaints. Complaint #1, chest wall pain, shortness of breath, lightheadedness and dizziness for 1 month. D-dimer negative, GCS 15, NIH score of 0, ambulatory with a steady gait, not currently tachycardic, tachypneic or hypoxic, denies DVT, pulmonary embolism risk factors, low risk by Wells criteria for pulmonary embolism, and PERC negative. D-dimer negative. This is most likely costochondritis, with probable undiagnosed obstructive sleep apnea. Discussed need to lose weight, and follow-up with outpatient primary care doctor for sleep study. Troponin negative x1 in the context of weeks of symptoms, EKG unchanged from prior. Low risk of major adverse cardiac event as per heart score. Treat supportively and symptomatically. EKG unchanged from prior. Troponin negative. Microcytic anemia is chronic, and secondary to heavy menstruation, as per history. No GI bleeding. Start Tylenol, Motrin, iron sulfate, follow-up with outpatient primary care, or gynecology. Lower extremity pain is reproducible, ambulatory with a steady gait, no palpable cord, negative Homans' sign, negative D-dimer. Counseled to lose weight, physical activities as tolerated. Patient observed in this department for hours without clinical decompensation. She is medically suitable for discharge with outpatient primary care and specialist follow-up. Return precautions reviewed. All questions answered. ED Medical Decision Making - Lab Data Result diagrams: 09/25/21 20:35 09/25/21 20:35 Vital Signs 09/25/21 13:30 Temperature 97.7 F Pulse Rate 69 Respiratory 18 Rate Blood Pressure 123/81 [Right] O2 Sat by Pulse 100 Oximetry Lab Results 09/25/21 09/25/21 09/25/21 Range/Units 20:35 20:35 20:35 WBC 4.6 (4.5-11.0) K/mm3 RBC 3.71 (3.65-5.03) M/mm3 Hgb 6.8 L (10.1-14.3) gm/dl Hct 23.2 L (30.3-42.9) % MCV 63 L (79-97) fl MCH 18 L (28-32) pg MCHC 29 L (30-34) % RDW 19.2 H (13.2-15.2) % Plt Count 330 (140-440) K/mm3 D-Dimer 193.52 (0-234) ng/mlDDU Sodium 139 (137-145) mmol/L Potassium 4.1 (3.6-5.0) mmol/L Chloride 101.5 (98-107) mmol/L Carbon Dioxide 24 (22-30) mmol/L Anion Gap 18 mmol/L BUN 7 (7-17) mg/dL Creatinine 0.5 L (0.6-1.2) mg/dL Estimated GFR > 60 ml/min BUN/Creatinine Ratio 14 % Glucose 101 H (65-100) mg/dL Calcium 10.1 (8.4-10.2) mg/dL Total Bilirubin 0.20 (0.1-1.2) mg/dL AST 20 (5-40) units/L ALT 11 (7-56) units/L Alkaline Phosphatase 49 (35-129) units/L Troponin T < 0.010 (0.00-0.029) ng/mL Total Protein 7.3 (6.3-8.2) g/dL Albumin 4.3 (3.9-5) g/dL Albumin/Globulin Ratio 1.4 % - EKG Data -: EKG Interpreted by [facility] EKG shows normal: sinus rhythm Rate: normal - EKG Data 09/25/21 22:26 The EKG is interpreted at 21: 31 Sinus rhythm, 65 bpm. Normal axis, normal P wave axis, low voltage, QTC 2 1 7 ms. Abnormal EKG. Not a STEMI. Nonspecific T wave abnormalities V2 V3, unchanged from prior. This EKG is unchanged from prior EKG from January 2021 - Radiology Data Radiology results: pending, report reviewed, image reviewed CHEST 2 VIEWS INDICATION / CLINICAL INFORMATION: cp dyspnea. COMPARISON: 02/04/21 FINDINGS: SUPPORT DEVICES: None. HEART / MEDIASTINUM: No significant abnormality. LUNGS / PLEURA: No significant pulmonary or pleural abnormality. No pneumothorax. ADDITIONAL FINDINGS: No significant additional findings. IMPRESSION: 1. No acute findings. No change. Signer Name: Erika Aguilar MD Signed: 09/25/2021 9:15 PM Workstation Name: [id number] Critical care attestation.: If time is entered above; I have spent that time in minutes in the direct care of this critically ill patient, excluding procedure time. ED Disposition Clinical Impression: Chest wall pain, Microcytic anemia, Body mass index (BMI) of 50-59.9 in adult, Left leg pain Disposition: 01 HOME / SELF CARE / HOMELESS Is pt being admited?: No Does the pt Need Aspirin: No Condition: Good Instructions: Costochondritis, BMI for Adults, Preventing Iron Deficiency Anemia, Adult Additional Instructions: Patient is found to have costochondritis, with chronic microcytic anemia. Pl ease take the iron sulfate supplementation as directed. Consume foods that are high in iron and protein, recommend follow-up with a primary care doctor within the next 2 weeks, for chronic microcytic anemia, and probable obstructive sleep apnea. Patient is encouraged to exercise as tolerated, and aggressively lose weight. Patient may also follow-up with the pulmonology specialist, such as Dr. Higginbotham, within the next month for evaluation for outpatient sleep study. If patient is so inclined, she may follow-up with the bariatric surgeon, such as Dr. Crowley, for outpatient evaluation for bariatric surgery. We also recommend that the patient follow-up with a scagliola mechanic for her reproductive health and heavy menstruation, within the next month. Take the ibuprofen as needed for physical pain, and may alternate with [id number] Tylenol/acetaminophen. Take the iron sulfate as directed, and take the constipation medication as needed and directed. Iron sulfate may cause constipation, abdominal cramping, and black stools. Please return to the emergency room right away with new pain, worsened pain, migration of pain, projectile vomiting, change in mental status, confusion, inab ility tolerate liquid feeds, new, worsened or different symptoms not present on the initial emergency room evaluation [facility] is a local gynecology practice. Dr. George is a local primary care doctor. Referrals: EDWARD GEORGE MD [Staff Physician] - 3-5 Days JAYJAY CROWLEY MD [Staff Physician] - 3-[address] [facility] [Provider Group] - 3-5 Days [facility] [Provider Group] - 3-5 Days JULIET HIGGINBOTHAM MD [Staff Physician] - 3-5 Days Forms: Work/School Release Form(ED) Heart Score - HEART Score History: Slightly suspicious EKG: Non-specific Age: < 45 Risk factors: 1-2 risk factors Troponin: < normal limit HEART Score: 2 - EKG Read Time Time EKG Completed: 21:31 EKG Read Time: 21:31 - Critical Actions Critical Actions: 0-3 pts:0.9-1.7%risk of adverse cardiac event.Candidate for discharge
[2021-09-25] MEDS: IBUPROFEN 400 MG TAB PO ONE (22:09)
[2021-09-25] MEDS: ACETAMINOPHEN 325 MG TAB PO ONE (22:09)
--- NOTE | 2021-09-25 22:19 | XRay Report ---
CHEST 2 VIEWS INDICATION / CLINICAL INFORMATION: cp dyspnea. COMPARISON: 02/04/21 FINDINGS: SUPPORT DEVICES: None. HEART / MEDIASTINUM: No significant abnormality. LUNGS / PLEURA: No significant pulmonary or pleural abnormality. No pneumothorax. ADDITIONAL FINDINGS: No significant additional findings. IMPRESSION: 1. No acute findings. No change. Signer Name: Erika Aguilar MD Signed: 09/25/2021 10:15 PM Workstation Name: [id number]
--- NOTE | 2021-09-27 14:20 | Electrocardiograph Report ---
[facility] Test Date: 2021-09-25 Test Time: 21:31:52 Pat Name: PERNELL GOMEZ Department: Room: Gender: F Type Proof Reproducer: ANA PAULA : 1980 Requested By: LILIA SADLER Order Number: [id number] Reading MD: Kennedi Amato Measurements Intervals [place] Rate: 65 P: 37 MS: 217 QRS: 52 QRSD: 84 T: 28 QT: 418 QTc: 434 Interpretive Statements Sinus rhythm Prolonged MS interval Low voltage, precordial leads Compared to ECG 02/04/2021 16:04:32 No significant change Electronically Signed On 09-27-2021 14:19:27 EDT by Kennedi Amato
== END 2021-09-25 23:11 | disposition home or self-care (01) ==
LOC: ED 12:20
DX: R07.89 Other chest pain (principal); D50.9 Iron deficiency anemia, unspecified; M79.605 Pain in left leg; G43.909 Migraine, unspecified, not intractable, without status migrainosus; Z79.899 Other long term (current) drug therapy; Z68.43 Body mass index [BMI] 50.0-59.9, adult
CPT/HCPCS: 36415; 71046; 80053; 84484; 85027; 85379; 93005; 99284

== ENCOUNTER 2021-09-27 18:58 | Emergency (ER) | payer SELFPAY ==
[2021-09-27 19:50] VITALS: BP 142/76
[2021-09-27] MEDS ORDERED: dexAMETHasone 20 MG/5 ML VIAL IM ONE (22:31)
[2021-09-27] MEDS ORDERED: CYCLOBENZAPRINE 10 MG TAB PO ONE (22:31)
[2021-09-27] MEDS ORDERED: KETOROLAC 30 MG/1 ML INJ IM ONE (22:31)
--- NOTE | 2021-09-27 22:36 | Emergency Department Report ---
ED General Adult HPI - General Chief complaint: Pain General Stated complaint: LEG PAIN Time Seen by Provider: 09/27/21 22:30 Source: patient Mode of arrival: Ambulatory Limitations: No Limitations - History of Present Illness Initial comments: Patient 41-year-old obese female who presents for left lower extremity pain that radiates from lumbar region. Patient has history of sciatica. With fall and injury to the same 2 years ago intermittent pain since. Patient rates pain today as 4/10 burning stinging that radiates from lumbar to left thigh to left foot patient denies numbness or paralysis, there is been no new fall injury or trauma. Patient states symptoms are exacerbated by performing work duties. 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 Patient denies other symptoms. There is been no loss or decrease in bowel or bladder function. Patient has not taken [id number] NSAIDs for pain. States she was treated 3 days ago in ED for same treated with ibuprofen however she did not get days off work. Requesting rest and that he is off work at this visit. Patient has not followed up with orthopedics. Or - Related Data Previous Rx's Medication Instructions Recorded Last Taken Type Ibuprofen [Motrin] 800 mg PO Q8HR PRN #12 tablet 08/22/18 Unknown Rx medroxyPROGESTERone ACETATE 10 mg PO QDAY #14 tablet 10/24/18 Unknown Rx [Provera] Ondansetron [Zofran Odt] 4 mg PO Q8HR PRN #20 tab.rapdis 02/04/21 Unknown Rx Docusate Sodium [Colace CAP] 100 mg PO BID PRN #30 capsule 09/25/21 Unknown Rx Ferrous Sulfate [Feosol 325 MG tab] 325 mg PO DAILY #60 tablet 09/25/21 Unknown Rx Ibuprofen [Motrin 800 MG tab] 600 mg PO Q6HR PRN #30 tab 09/25/21 Unknown Rx Cyclobenzaprine [Flexeril] 10 mg PO TID PRN #30 tab 09/27/21 Unknown Rx Menthol/Camphor [[place] 1 applicatio TP QID PRN #1 tube 09/27/21 Unknown Rx Ointment] Naproxen 500 mg PO BID PRN #30 tab 09/27/21 Unknown Rx Allergies Allergy/AdvReac Type Severity Reaction Status Date / Time No Known Allergies Allergy Verified 09/27/21 19:55 ED Review of Systems ROS: Stated complaint: LEG PAIN Other details as noted in HPI Constitutional: denies: chills, fever Eyes: denies: eye pain, eye discharge, vision change ENT: denies: ear pain, throat pain Respiratory: denies: cough, shortness of breath, wheezing Cardiovascular: denies: chest pain, palpitations Endocrine: no symptoms reported Gastrointestinal: denies: abdominal pain, nausea, diarrhea Genitourinary: denies: urgency, dysuria, discharge Musculoskeletal: back pain, arthralgia, myalgia Skin: denies: rash, lesions Neurological: denies: headache, weakness, numbness, paresthesias, confusion, vertigo Psychiatric: denies: anxiety, depression Hematological/Lymphatic: denies: easy bleeding, easy bruising ED Past Medical Hx - Past Medical History Previous Medical History?: Yes Hx Congestive Heart Failure: No Hx Diabetes: No Hx Headaches / Migraines: Yes (migraines) Hx Asthma: No Hx COPD: No Additional medical history: fibroids ANEMIA - Surgical History Past Surgical History?: Yes Additional Surgical History: myomectomy - Social History Smoking Status: Never Smoker Substance Use Type: None - Medications Home Medications: Home Medications Medication Instructions Recorded Confirmed Last Taken Type Ibuprofen [Motrin] 800 mg PO Q8HR PRN #12 tablet 08/22/18 10/23/18 Unknown Rx medroxyPROGESTERone ACETATE 10 mg PO QDAY #14 tablet 10/24/18 Unknown Rx [Provera] Ondansetron [Zofran Odt] 4 mg PO Q8HR PRN #20 tab.rapdis 02/04/21 Unknown Rx Docusate Sodium [Colace CAP] 100 mg PO BID PRN #30 capsule 09/25/21 Unknown Rx Ferrous Sulfate [Feosol 325 MG tab] 325 mg PO DAILY #60 tablet 09/25/21 Unknown Rx Ibuprofen [Motrin 800 MG tab] 600 mg PO Q6HR PRN #30 tab 09/25/21 Unknown Rx Cyclobenzaprine [Flexeril] 10 mg PO TID PRN #30 tab 09/27/21 Unknown Rx Menthol/Camphor [[place] 1 applicatio TP QID PRN #1 tube 09/27/21 Unknown Rx Ointment] Naproxen 500 mg PO BID PRN #30 tab 09/27/21 Unknown Rx ED Physical Exam - General Limitations: No Limitations General appearance: alert, in no apparent distress - Head Head exam: Present: atraumatic, normocephalic - Eye Eye exam: Present: EOMI Pupils: Present: normal accommodation - ENT ENT exam: Present: mucous membranes moist - Neck Neck exam: Present: normal inspection, full ROM. Absent: tenderness, meningismus - Respiratory Respiratory exam: Present: normal lung sounds bilaterally. Absent: respiratory distress, wheezes, stridor, chest wall tenderness - Cardiovascular Cardiovascular Exam: Present: regular rate, normal heart sounds - GI/Abdominal GI/Abdominal exam: Present: soft, normal bowel sounds. Absent: distended, tenderness - Rectal Rectal exam: Present: deferred - Extremities Exam Extremities exam: Present: normal inspection, full ROM, normal capillary refill. Absent: tenderness, pedal edema, calf tenderness - Expanded Lower Extremity Exam Left Hip exam: Present: full ROM. Absent: tenderness Upper Leg exam: Present: full ROM. Absent: tenderness Knee exam: Absent: tenderness, swelling Lower Leg exam: Present: full ROM, swelling. Absent: tenderness Ankle exam: Present: full ROM, swelling. Absent: tenderness Foot/Toe exam: Present: full ROM, swelling. Absent: tenderness Neuro vascular tendon exam: Absent: pulse deficit, motor deficit, sensory deficit, tendon deficit Gait: Positive: observed and normal - Back Exam Back exam: Present: normal inspection, full ROM, paraspinal tenderness. Absent: CVA tenderness (R), CVA tenderness (L), vertebral tenderness - Expanded Back Exam Expanded Back exam: Absent: saddle anesthesia Back exam: Sciatic Notch Tenderness: Left, Positive Straight Leg Raise: Left, Negative Straight Leg Raising: Right - Neurological Exam Neurological exam: Present: alert, oriented X3, CN II-XII intact, normal gait, reflexes normal. Absent: motor sensory deficit - Expanded Neurological Exam Expanded Patient oriented to: Present: person, place, time Speech: Present: fluid speech Cranial nerves: EOM's Intact: Normal Cerebellar function: Heel to [place]: Normal Motor strength exam: RUE: 5, LUE: 5, RLE: 5, LLE: 5 DTR: knee (R): 1+, knee (L): 1+ Best Eye Response ([place]): (4) open spontaneously Best Motor Response ([place]ulam): (6) obeys commands Best Verbal Response ([place]): (5) oriented [place] Total: 15 - Psychiatric Psychiatric exam: Present: normal affect, normal mood - Skin Skin exam: Present: warm, dry, intact, normal color ED Course Vital Signs 09/27/21 19:49 Temperature 97.9 F Pulse Rate 79 Respiratory 18 Rate Blood Pressure 142/76 O2 Sat by Pulse 100 Oximetry ED Medical Decision Making - Medical Decision Making This is straightforward exacerbation of sciatica, no symptoms of DVT. Wells s core is 0 with low suspicion no calf tenderness no pain with dorsiflexion distal pulses intact patient is amatory with steady gait. There is some paraspinous lumbar tenderness to deep palpation only. Positive straight leg left and is in same location as previous flares. Plan NSAIDs, muscle relaxants, follow-up with orthopedics in 2 to 3 days. There has been no new fall injury or trauma. Patie nt alert oriented x3 there has been no loss or decrease in bowel or bladder function patient DC'd home in stable condition at this time. Critical care attestation.: If time is entered above; I have spent that time in minutes in the direct care of this critically ill patient, excluding procedure time. ED Disposition Clinical Impression: Sciatica of left side Strain of lumbar paraspinal muscle Qualifiers: Encounter type: initial encounter Qualified Code(s): S39.012A - Strain of muscle, fascia and tendon of lower back, initial encounter Disposition: HOME / SELF CARE / HOMELESS Is pt being admited?: No Does the pt Need Aspirin: No Condition: Stable Instructions: Low Back Sprain or Strain Rehab-SportsMed, Sciatica Rehab- SportsMed, Back Injury Prevention Additional Instructions: Take medications as prescribed, back exercises as directed. Follow-up with orthopedic surgery in 2 to 3 days. Follow-up with your primary care doctor as scheduled. Return to emergency department should symptoms worsen. Prescriptions: Cyclobenzaprine [Flexeril] 10 mg PO TID PRN #30 tab PRN Reason: Muscle Spasm Naproxen 500 mg PO BID PRN #30 tab PRN Reason: Pain , Severe (7-10) Menthol/Camphor [[place] Ointment] 1 applicatio TP QID PRN #1 tube PRN Reason: pain Referrals: AZ COLE MD [Staff Physician] - 3-5 Days Forms: Work/School Release Form(ED) Time of Disposition: 22:53
== END 2021-09-27 22:59 | disposition home or self-care (01) ==
LOC: ED 18:58
DX: S39.012A Strain of muscle, fascia and tendon of lower back, initial encounter (principal); M54.32 Sciatica, left side; G43.909 Migraine, unspecified, not intractable, without status migrainosus; Z98.890 Other specified postprocedural states; X58.XXXA Exposure to other specified factors, initial encounter; Y93.89 Activity, other specified; Y92.89 Other specified places as the place of occurrence of the external cause; Y99.8 Other external cause status
CPT/HCPCS: 96372; 99282; J1100; J1885